=== PATIENT | male | born 1955 | race Caucasian/White ===

== ENCOUNTER 2024-07-14 10:24 | Day surgery (SDC) | payer MEDICARE, BC, SELFPAY ==
[2024-07-14] VITALS (13 sets, daily range): BP systolic 134–164; BP diastolic 68–83; BMI 32.5
[2024-07-14 11:41] LABS: Glucose - Point of Care 135 mg/dl (70-99)
[2024-07-14] MEDS: NSS 335 ML IV (12:14)
[2024-07-14] MEDS: NSS 1000 IV (14:45)
[2024-07-14 14:49] LABS: Glucose - Point of Care 117 mg/dl (70-99)
--- NOTE | 2024-07-14 14:52 | ITS.CL.PN ---
Lighting Fixture Installer - Procedure Note
Procedure
Procedure Note:
CARDIAC CATHETERIZATION REPORT
Date of Procedure: 07/15/2019
Referring: Dr. Leobardo Reyna DO
Indication: positive cardiac stress test
PROCEDURE(S)
1. left heart catheterization
2. coronary angiography
ACCESS: 6F right radial artery (closure: radial band)
CATHETERS
1. 6F JR4
2. 6F JL4
MODERATE SEDATION: 25 minutes of moderate sedation was utilized. An independent medical records receptionist was present to assist with and help manage the patient's level of consciousness and physiologic status.
HEMODYNAMIC DATA
LV 138/7 (EDP 11) mmHg
AO 128/72 (mean 98) mmHg
CORONARY ANGIOGRAPHY
Dominance: Right
LM: Large vessel with mild distal tapering
LAD: Large vessel giving rise to a single large branching diagonal. There is a long segment calcified disease in the proximal vessel as great as 80%. There is diffuse moderate disease in the diagonal and a focal severe ostial stenosis.
LCx: Large vessel giving rise to a small OM1, small OM2, small LPL1, moderate caliber LPL2, small LPL3. There is an eccentric 50% ostial stenosis and tandem 90% proximal stenosis. The small OM1 is subtotally occluded with ROBERT II flow.
RCA: Large vessel with a total occlusion in the midportion and bridging collaterals supplying antegrade flow to the RPDA There is evidence of competitive flow in the large RPDA. The distal RPDA fills via left to right collaterals from the LAD.
RADIATION: dose 525.25 mGy; DAP 31.1719 Gy*cm2; fluoroscopy time 2.9 min
CONCLUSIONS
1. Severe three-vessel coronary artery disease as described.
2. Normal LV filling pressure and no aortic stenosis
RECOMMENDATIONS
1. Consideration of coronary artery bypass grafting with SANDOVAL to LAD and additional grafts to the diagonal, LPL, and RPDA.
2. Aggressive secondary prevention of coronary artery disease
3. Continue aspirin / statin
4. Initiate low-dose beta-wan in setting of ischemia on stress test and severe coronary artery disease
Copy to: Leobardo Reyna DO (hoop punch operator helper)
Signed: Curly Hastings MD, PhD
== END 2024-07-14 17:20 | disposition home or self-care (01) ==
LOC: CATH 10:24
PROVIDERS: ATTENDING PHYSICIAN Student in an Organized Health Care Education/Training Program; CONSULT PHYSICIAN Thoracic Surgery (Cardiothoracic Vascular Surgery); FAMILY PHYSICIAN Family Medicine; OTHER PHYSICIAN Internal Medicine Cardiovascular Disease
DX: I25.10 Atherosclerotic heart disease of native coronary artery without angina pectoris (principal); Z79.82 Long term (current) use of aspirin; Z79.899 Other long term (current) drug therapy
CPT/HCPCS: 99152; 99153; 82962; 93458; C1894; Q9967

== ENCOUNTER → 2024-07-27 14:10 | Outpatient (REF) | payer MEDICARE, BC, SELFPAY | LOC: HWRAD 14:10 | PROVIDERS: ATTENDING PHYSICIAN Thoracic Surgery (Cardiothoracic Vascular Surgery); FAMILY PHYSICIAN Family Medicine | DX: Z01.810 Encounter for preprocedural cardiovascular examination (principal) | CPT/HCPCS: 71250 ==

== ENCOUNTER 2024-08-04 05:01 | Inpatient (IN) | payer MEDICARE, BC, SELFPAY ==
[2024-08-01 08:19] VITALS: BMI 32.6
[2024-08-01 09:24] LABS: % Basophils 0.8 % (0-2); % Eosinophils 1.8 % (0-6); % Immature Granulocytes 0.2 % (0-0.5); % Lymphocytes 27.8 % (20.5-51.1); % Monocytes 10.4 % (1.7-9.3); Absolute Eosinophils 0.1 10^3/uL (0-0.7); Absolute Lymphocytes 1.4 10^3/uL (1.2-3.4); Absolute Monocytes 0.5 10^3/uL (0.1-0.6); Hematocrit 42.8 % (39.0-52.0); Hemoglobin 15.5 g/dL (13.0-18.0); Mean Corp Hgb Conc. 36.2 g/dL (33.0-37.0); Mean Corpuscular Hgb 32.3 pg (27.0-31.0); Mean Corpuscular Volume 89.2 fL (80.0-94.0); Mean Platelet Volume 10.6 fL (7.4-10.4); Nucleated Red Blood Cells % 0 % (-); Platelet Count 172 10^3/uL (130-400); Red Cell Dist. Width 11.8 % (11.5-14.5); White Blood Cell Count 5.1 10^3/uL (4.8-10.8)
[2024-08-01 09:27] LABS: Urine Albumin Negative (Neg - Trace); Urine Bilirubin Negative (Negative); Urine Character Clear (Clear); Urine Color Yellow; Urine Glucose 4+ (Negative); Urine Ketone 3+ (Negative); Urine Leukocyte Negative (Negative); Urine Nitrite Negative (Negative); Urine Occult Blood Negative (Negative); Urine Urobilinogen Negative (Neg - 1+)
[2024-08-01 09:30] LABS: APTT 25.9 Sec (23.4-35.0); INR 1.02; PT 13.8 Sec (11.4-14.6)
--- NOTE | 2024-08-01 10:01 | CM ---
Chart reviewed. Met with the patient and his in PAT. Reviewed preoperative and postoperative instructions and restrictions, along with showering guidelines. Gave patient 2 soaps. Patient is agreeable to a home visit by CT Transitional RN.
Patient is independent of ADLS, lives with his in a 2 [address], 1st floor set up, 1 TEX, ambulates with a SPC but has a RW at home if needed. Plan is for the patient to return home with CT Transitional RN.
[2024-08-01 10:19] LABS: ALT (SGPT) 29 U/L (0-50); AST (SGOT) 21 U/L (17-59); Albumin 4.5 g/dl (3.5-5.0); Alkaline Phosphatase 56 U/L (38-126); Blood Urea Nitrogen 20 mg/dl (9-20); Carbon Dioxide 24 mmol/L (22-30); Chloride 103 mmol/L (98-107); Direct Bilirubin 0.2 mg/dl (0.0-0.4); Estimated Creatinine Clearance > 125 ml/min; Glucose 165 mg/dl (70-99); Potassium 4.4 mmol/L (3.5-5.1); Sodium 138 mmol/L (135-145); Total Bilirubin 0.9 mg/dl (0.2-1.3); Total Protein 6.9 g/dl (6.3-8.2); eGFR > 60.00
[2024-08-01 10:47] LABS: Glycohemoglobin (HgbA1c) 7.7 % (4.0-5.6)
[2024-08-04] VITALS (15 sets, daily range): BP systolic 74–169; BP diastolic 50–77; BMI 32.3
[2024-08-04] MEDS: BACTROBAN 2% OINTMENT 1 APPLIC NASAL ×2 (06:07→19:41)
[2024-08-04] MEDS: LOPRESSOR 25 MG PO (06:07)
[2024-08-04] MEDS: MAGNESIUM OXIDE 500 MG PO (06:07)
[2024-08-04] MEDS: PROTONIX 40 MG PO (06:08)
[2024-08-04 07:26] LABS: Urine Albumin 1+ (Neg - Trace); Urine Bilirubin Negative (Negative); Urine Character Clear (Clear); Urine Color Yellow; Urine Glucose 4+ (Negative); Urine Ketone 1+ (Negative); Urine Leukocyte Negative (Negative); Urine Nitrite Negative (Negative); Urine Occult Blood 1+ (Negative); Urine Urobilinogen Negative (Neg - 1+)
[2024-08-04 07:30] LABS: ACT+ - POC 107 Seconds (82-134)
--- NOTE | 2024-08-04 07:30 | PTCARENOTE ---
Pt admitted at 0511 to CVICU. VS, weight done. Pt clipped and prepped per CVOR protocol. CHG bath given. Med rec completed. Pre op meds given. See JUN. ABO sent. Dr. Gonzalez at bedside to see pt and . Pt placed on Modified contact precautions for
hx MRSA to toe wound in 2021. Recent nasal swab x 1 negative for MRSA. No other MRSA testing over past year. Pt reported fall in past 3 months, also uses a cane. Request for PT screen placed. Pt sent to CVOR with 2 RNs at 0630.
[2024-08-04 08:33] LABS: Urine Red Blood Cell 0-2 /HPF (0-2); Urine Squamous Cell 0-2 /LPF (Few); Urine White Cell 0-2 /HPF (0-5)
[2024-08-04 08:37] LABS: Urine Bacteria Few (Negative)
[2024-08-04 09:42] LABS: ACT+ - POC 564 Seconds (82-134)
[2024-08-04 10:07] LABS: B.E. - POC -0.8 mmol/L; Glucose - POC 297 mg/dl (70-99); HCO3 - POC 24 mmol/L (21-28); Hematocrit - POC 38 % PCV (42-52); Hemodilution- POC No; Hemoglobin Calculated - POC 12.9; Ionized Calcium - POC 1.21 mmol/L (1.15-1.33); Lactate - POC 0.94 mmol/L (0.36-0.75); O2 Saturation %Calculated-POC 99.4 % (94-98); PCO2 - POC 40 mmHg (35-48); PO2 - POC 155 mmHg (83-108); Potassium - POC 4.2 mmol/L (3.5-5.1); Sodium - POC 140 mmol/L (136-145); Specimen Type - POC Arterial; pH - POC 7.39 (7.35-7.45)
[2024-08-04 10:18] LABS: ACT+ - POC 590 Seconds (82-134)
[2024-08-04 10:45] LABS: B.E. - POC 1.5 mmol/L; Glucose - POC 232 mg/dl (70-99); HCO3 - POC 26 mmol/L (21-28); Hematocrit - POC 32 % PCV (42-52); Hemodilution- POC Yes; Ionized Calcium - POC 1.04 mmol/L (1.15-1.33); Lactate - POC 0.39 mmol/L (0.36-0.75); PCO2 - POC 40 mmHg (35-48); PO2 - POC 433 mmHg (83-108); Potassium - POC 4.6 mmol/L (3.5-5.1); Sodium - POC 139 mmol/L (136-145); Specimen Type - POC Arterial; pH - POC 7.42 (7.35-7.45)
--- NOTE | 2024-08-04 10:56 | CM ---
Chart reviewed. Patient is in the OR today. Patient is independent of ADLS, lives with his in a [facility], [facility] 1st floor set up, 1 TEX, ambulates with a SPC and has a RW at home if needed. Plan is for the patient to return
home with CT Transitional RN. CM to follow
[2024-08-04 10:58] LABS: ACT+ - POC 539 Seconds (82-134)
[2024-08-04 11:19] LABS: B.E. - POC -0.1 mmol/L; Glucose - POC 206 mg/dl (70-99); HCO3 - POC 25 mmol/L (21-28); Hematocrit - POC 31 % PCV (42-52); Hemodilution- POC Yes; Hemoglobin Calculated - POC 10.5; Ionized Calcium - POC 1.13 mmol/L (1.15-1.33); Lactate - POC 0.85 mmol/L (0.36-0.75); O2 Saturation %Calculated-POC 99.9 % (94-98); PCO2 - POC 43 mmHg (35-48); PO2 - POC 342 mmHg (83-108); Potassium - POC 3.8 mmol/L (3.5-5.1); Sodium - POC 142 mmol/L (136-145); Specimen Type - POC Arterial; pH - POC 7.38 (7.35-7.45)
[2024-08-04 11:27] LABS: ACT+ - POC 440 Seconds (82-134)
[2024-08-04 12:24] LABS: B.E. - POC 0.2 mmol/L; Glucose - POC 197 mg/dl (70-99); HCO3 - POC 25 mmol/L (21-28); Hematocrit - POC 29 % PCV (42-52); Hemodilution- POC Yes; Hemoglobin Calculated - POC 9.9; Ionized Calcium - POC 1.05 mmol/L (1.15-1.33); Lactate - POC 1.81 mmol/L (0.36-0.75); O2 Saturation %Calculated-POC 99.7 % (94-98); PCO2 - POC 37 mmHg (35-48); PO2 - POC 200 mmHg (83-108); Potassium - POC 4.2 mmol/L (3.5-5.1); Sodium - POC 142 mmol/L (136-145); Specimen Type - POC Arterial; pH - POC 7.42 (7.35-7.45)
[2024-08-04 12:28] LABS: ACT+ - POC 137 Seconds (82-134)
[2024-08-04 12:55] LABS: B.E. - POC -1.3 mmol/L; Glucose - POC 146 mg/dl (70-99); HCO3 - POC 24 mmol/L (21-28); Hematocrit - POC 29 % PCV (42-52); Hemodilution- POC Yes; Hemoglobin Calculated - POC 9.8; Lactate - POC 2.61 mmol/L (0.36-0.75); O2 Saturation %Calculated-POC 99.5 % (94-98); PCO2 - POC 42 mmHg (35-48); PO2 - POC 173 mmHg (83-108); Potassium - POC 3.7 mmol/L (3.5-5.1); Sodium - POC 144 mmol/L (136-145); Specimen Type - POC Arterial; pH - POC 7.37 (7.35-7.45)
--- NOTE | 2024-08-04 12:55 | W.CVOR.SURPR ---
CVOR Surgeon Immed Pre Op
-
I have examined this patient prior to performance of the scheduled procedure.
The patient's condition is unchanged from the time of the dictated/written History and
Physical and the patient is able to undergo the scheduled procedure.
--- NOTE | 2024-08-04 12:56 | W.IMMPOSTOP ---
Surgical Immed Post Op Note
-
CARDIAC SURGERY OPERATIVE NOTE:
Preoperative Dx:
MVCAD
Postoperative Dx:
Same
Procedures:
1) Median sternotomy
2) Takedown of JOS (narrow pedicle)
3) Endoscopic harvest/prep of RLE GSV
4) CABG x 4 (JOS to LAD, GSV to D1, GSV to OM, GSV to RPDA)
5) ELAA (40mm AtriClip)
Surgeon:
Carrillo Gonzalez M.D.
Assistants:
Alex PaulinoAJayden-Moreno; assistant manager pt throughout
Ki Mitchell-Moreno; endoscopic harvest of RLE GSV, pucdcu-sccw-dbow sternotomy closure
Anesthesia:
Dylan AquinoN.A. and Hari Graham M.D.
Perfusion:
Teresita Colbert, C.C.P.; XC: 78min, CPB: 126min
Findings:
JOS was a very healthy conduit w/ extremely brisk blood flow and ELD 3.0mm
GSV was a very healthy conduit w/ ELD 3.5
LAD was visible on the epicardial surface, scattered calcifications, ELD 3.25mm
D1 was visible on the epicardial surface, scattered calcifications, ELD 2.75mm
OM was visible on the epicardial surface, scattered calcifications, ELD 3.00mm
RPDA was visible on the epicardial surface, scattered calcifications, ELD 3.25mm
BOOKER w/ windsock morphology
Excellent flow in all grafts on transit-time U/S flow probe assessment
Normal biventricular function, trace MR, BOOKER confirmed excluded
Transfusions:
None
Complications:
None
Implants:
40mm AtriClip
Epicardial V-wire x 1
CT x 4 (B/L pleural, inferior mediastinal, superior mediastinal)
Sternal 'X' plate w/ 8 - 12mm screws
Sternal 'Square' plate w/ 4 - 10mm screws
Condition:
61 sinus (0.6/0.2); 102/57, CVP 15, 98%
GTTS: insulin 1, precedex 0.5, levophed 2
Stable/guarded to CVICU
[2024-08-04 13:32] LABS: Glucose - Point of Care 149 mg/dl (70-99)
--- NOTE | 2024-08-04 13:36 | W.PN.UPDATE ---
Update Note
Progress Note Update
Crystalloid: 3700
U.O.: 1000
UF: 1000
Blood: None
Wires: V
Inotropes: none
Pressors: levophed
Sedatives: precedex
NEURO: sedated on precedex, pupils +2mm B/L
RESP: #8OT @24cm> 14/500/40/5 Lungs clear B/L. 2 mediastinal (0cc on arrival) and R/L pleural (20cc on arrival) chest tubes to -20cm suction. Sanguineous drainage
CV: RRR +S1, S2, no S3, no rub, no murmur. Dermabond to median sternotomy. RIJ w/Slicc
ABD: round, soft, no BS
EXT: no edema, +2/4 DP pulses B/L, no femoral bruit, LE DERRELL wrap intact; left radial A-line intact
: Horowitz with clear yellow urine
A/P: POD #0 s/p CABG x 4 (JOS to LAD, GSV to D1, GSV to OM, GSV to RPDA) and ELAA (40mm AtriClip)
WERO: EF NML
- wean and extubate
- Monitor CT and urine output
- Follow up labs and CXR
- Wean levophed for maps >65/SBP goal 90-130
- Will start ASA tonight and plavix tomorrow
- EKG pending and will send to cards
- Cards consulted
# acute surgical blood loss anemia-expected
- trend CBC
# T2DM (A1C 7.7)
- insulin infusion x 48h
- resume oral agents when able
- Dm management consulted
# Hyperlipidemia
- resume statin when tolerating PO
[2024-08-04 13:48] LABS: B.E. -1.9 mmol/L; HCO3 23.7 mmol/L (21-28); Ionized Calcium 1.23 mMOL/L (1.15-1.33); O2 Saturation % 98.5 % (94-98); PCO2 43 mmHg (35-48); PO2 86 mmHg (83-108); Potassium 3.9 mMOL/L (3.5-5.1); Sodium 138 mMOL/L (136-145); pH 7.35 (7.35-7.45)
[2024-08-04] MEDS: KCL 50 IV (14:00)
[2024-08-04 14:08] LABS: Hematocrit 31.3 % (39.0-52.0); Hemoglobin 11.5 g/dL (13.0-18.0); Platelet Count 151 10^3/uL (130-400)
[2024-08-04 14:10] LABS: APTT 27.2 Sec (23.4-35.0); INR 1.37; PT 17.1 Sec (11.4-14.6)
[2024-08-04 14:12] LABS: Blood Urea Nitrogen 12 mg/dl (9-20); Estimated Creatinine Clearance > 125 ml/min; Glucose 150 mg/dl (70-99); Magnesium 2.5 mg/dl (1.6-2.3)
[2024-08-04] MEDS: LEXAPRO PO (14:28)
[2024-08-04] MEDS: NEURONTIN PO ×2 (14:28→19:41)
[2024-08-04] MEDS: CRESTOR PO (14:28)
--- NOTE | 2024-08-04 14:30 | PTCARENOTE ---
Pt received from CVOR;Sedated and intubated; Pupils round, reactive, and equal; SB rhythm on monitor; VSS; Epicardial pacemaker present; with pacer settings VVI 30/10; DP and radial pulses present; Lungs clear/diminished ETT size 8 positioned and
secured at 23 cm right/lip; Ventilator settings SIMV 16/500/5 FiO2 40%; CTx4 to -20 cm wall suction draining bloody drainage - no air leak, tidaling, or crepitus noted; Hypoactive BS; Horowitz catheter in place draining yellow clear urine; Skin Sternal
Midline Incision CDI/ R Leg wrapped in Mj wrap - CDI; No Edema present; A-line in left radial artery - line zeroed and level; [place] present in right Cordis;; PIVx1; insulin/precedex infusing; See nursing flowsheets for further details.
[2024-08-04 14:47] LABS: Glucose - Point of Care 163 mg/dl (70-99)
[2024-08-04] MEDS: NOVOLOG FLEXPEN 4 UNITS SC (14:54)
[2024-08-04] MEDS: NSS 500 IV (14:55)
--- NOTE | 2024-08-04 15:00 | W.PN.CD ---
Today's Communication / Plan
-
wean sedation likely extubation later
Impression / Plan
-
A/P: 69-year-old male with past medical history of CAD, TIA, hyperlipidemia, type 2 diabetes and chronic diastolic heart failure who is here for CABG. He is now status post CABG x4 (JOS to LAD, GSV to D1, GSV to OM, GSV to RPDA) and ELAA w/ 40 mm
AtriClip.
CAD s/p CABG
- stable cont aspirin and statin
- off inotropes
- remains intubated and sedated
HTN
- on metop
Dyslipidemia
- cont statin
DM2
- resume sglt2i when able
Subjective: intubated and sedated
Physical Exam
Vital Signs/Labs
Vital Signs
Temp Pulse Resp BP Pulse Ox
98 F 74 20 110/56 98
08/05/24 07:58 08/05/24 08:07 08/05/24 07:58 08/05/24 08:07 08/05/24 07:58
08/04/24 08/05/24 08/06/24
06:59 06:59 06:59
Actual Weight 244 lb 14.937 oz 253 lb 8.505 oz
08/05/24 03:13
08/05/24 03:13
PT 17.1 Sec (11.4-14.6) H 08/04/24 13:31
INR 1.37 08/04/24 13:31
APTT 27.2 Sec (23.4-35.0) 08/04/24 13:31
Magnesium 2.2 mg/dl (1.6-2.3) 08/05/24 03:13
Physical Exam
Constitutional: No acute distress and Comfortable
EENT: Anicteric
Cardiovascular: Rhythm & rate is regular and Pedal edema is absent
Respiratory: Other (coarse b/s)
GI: Soft
Neuro/Psych: Other (intubated)
Data Reviewed
-
Date of Service: August 05, 2024
Medical Decision Making: Reviewed Test Results
EKG: Tracing Personally Visualized and interpreted (sr)
Echo: Report Reviewed by me
Labs: Labs Reviewed by me
[2024-08-04 15:22] LABS: B.E. - POC -0.7 mmol/L; Blood Urea Nitrogen - POC 14 mg/dl (3-120); Chloride - POC 109 mmol/L (96-111); Creatinine - POC 0.59 mg/dl (0.3-1.0); Glucose - POC 187 mg/dl (70-99); HCO3 - POC 25 mmol/L (21-28); Hematocrit - POC 34 % PCV (42-52); Hemodilution- POC Yes; Hemoglobin Calculated - POC 11.4; Ionized Calcium - POC 1.26 mmol/L (1.15-1.33); Lactate - POC 2.45 mmol/L (0.36-0.75); PCO2 - POC 43 mmHg (35-48); PO2 - POC 135 mmHg (83-108); Potassium - POC 4.4 mmol/L (3.5-5.1); Sodium - POC 145 mmol/L (136-145); Specimen Type - POC Arterial; pH - POC 7.37 (7.35-7.45)
--- NOTE | 2024-08-04 15:24 | CON.INTV ---
Consultation
Consultation Request
Date/Time Consultation Requested: 08/04/2024
Date/Time Consultation Performed: 08/04/2024
Requesting Provider: Carrillo Gonzalez
Performing Provider: Steve Peters
Reason for Consultation: CABG
Medical History
-
Chief Complaint: Abnormal stress test
History of Present Illness:
Patient is a 69-year-old gentleman with known history of hypertension, hyperlipidemia as well as prior history of stroke who follows up with cardiology services outpatient closely. Patient recently had an outpatient stress test which was suggestive
of ischemia that was followed by a cardiac catheterization showing multivessel coronary artery disease. Patient was subsequently referred to cardiothoracic surgery for further evaluation. Today patient was taken to the OR for elective coronary
artery bypass grafting as well as left and left atrial appendage exclusion. Postsurgery patient was transferred to CVICU and facing grinder consult was requested for further input
Past medical history: Hypertension, hyperlipidemia, diabetes, history of CVA/TIA in the past, spinal stenosis with neuropathy
Past surgical history: Back surgery
Family history. No history of lung cancer in the family.
Social history. Patient smoked very briefly in his 20s and since has not smoked. No reported history of marijuana or vaping.
Allergies / Home Medications
Allergies
Allergy/AdvReac Type Severity Reaction Status Date / Time
Opioids - Morphine Analogues Allergy unable to Verified 08/04/24 05:59
take-
previous
medical
dependency
Opioids-Meperidine and Allergy unable to Verified 08/04/24 05:59
Related take-
previous
medical
dependency
Penicillins Allergy Hives Verified 08/04/24 05:59
Home Medications
�Medication �Instructions �Recorded �Confirmed �Last Taken �Type
benazepril 40 mg tablet 40 mg PO DAILY Blood Pressure 07/14/24 08/04/24 07/31/24 07:00 History
empagliflozin 12.5 mg-metformin 1 tab PO BID Diabetes 07/14/24 08/04/24 07/31/24 07:00 History
1,000 mg tablet (Synjardy)
escitalopram oxalate 20 mg tablet 20 mg PO DAILY Depression 07/14/24 08/04/24 08/03/24 07:00 History
nitroglycerin 0.4 mg sublingual 0.4 mg sublingual [id number] PRN 07/14/24 07/27/24 Unknown Rx
tablet chest pain #25 tabs
amino acids (Amino Acid capsule) 2 cap PO DAILY Supplement 08/04/24 08/04/24 07/21/24 07:00 History
aspirin 81 mg tablet,delayed 81 mg PO DAILY Blood Clot 08/04/24 08/04/24 08/03/24 07:00 History
release Prevention/Tx
creatine monohydrate 2 PO DAILY Supplement 08/04/24 07/21/24 07:00 History
krill oil 2 tab PO DAILY Supplement 08/04/24 08/04/24 07/21/24 07:00 History
metoprolol succinate 25 mg 25 mg PO DAILY Heart 08/04/24 08/04/24 08/03/24 07:00 History
tablet,extended release 24 hr Disease/Condition
rosuvastatin 20 mg tablet (Crestor) 20 mg PO DAILY High Cholesterol 08/04/24 08/04/24 08/03/24 07:00 History
vitamin D3-vitamin K2 1 tab PO DAILY Supplement 08/04/24 08/04/24 07/28/24 07:00 History
Review of Systems
-
Hematologic/Lymphatic: Other (All 14 systems reviewed and negative except as stated above in the history of present illness.)
Vitals / Labs / Diagnostic Testing
Vital Signs
Temp Pulse Resp BP Pulse Ox
98.1 F 54 15 78/54 97
08/04/24 15:00 08/04/24 15:00 08/04/24 15:00 08/04/24 15:00 08/04/24 15:00
Lab Data
08/04/24 13:31
Laboratory Results
08/04/24
13:31
PT 17.1 H
INR 1.37
APTT 27.2
pH 7.35
pCO2 43
pO2 86
HCO3 23.7
O2 Delivery Level
Microbiology
08/01/24 08:40 Nose MRSA Screen - Final
No Methicillin Resistant Staphylococcus aureus isolated.
Diagnostic Testing:
Physical Exam
-
HEENT: Normocephalic
Cardiovascular: S1/S2
Respiratory: Clear and Non-Labored Respirations
GI: Soft and Non Distended
Neurology: Awake and Alert
Skin: Warm
General: Comfortable
Assessment
-
Patient is a 69-year-old gentleman with recently diagnosed triple-vessel coronary artery disease, s/p coronary artery bypass grafting and left atrial appendage exclusion POD #0
Titrated off pressors per protocol, off Levophed
ECHO reviewed with normal EF
Right IJ Cordis in place
Management of chest tubes per primary service
Extubated to nasal canula. Work of breathing normal
ABG(s) 7.35, 43, 86
CXR with mild bibasilar atelectasis, otherwise unremarkable except for tubes and lines
Maintain supplement oxygen as needed
Incidental 3 mm pulmonary nodule noted on imaging. Patient smoked briefly in his 20's. No further work up needed
Spirometry 07/2024: FEV1 98% predicted, FVC 95% predicted, FEV1/FVC 78. Normal Spirometry. No known h/o COPD/Asthma.
Can add nebulizers if needed
Aspiration precautions
Encouraged incentive spirometry, OOB/ambulation/early mobility
Advance diet as tolerated following extubation
GI prophylaxis: Protonix
Monitor critical I/O's
Horowitz/chest tube output
Hb/platelets postoperatively stable
Trend CBC for now
Can transfuse if indicated for Hb <7, plt <50 in surgical patients
DVT prophylaxis including SCDs
Insulin protocol initiated and ongoing
Transition to SQ/off as indicated per team
Other medical Diagnoses:
-HTN
-HLD
-DM
-h/o CVA
-Incidental lung nodule 3mm. Out patient follow up with Pulmonary Clinic. Information added to the discharge section.
Critical Care time 61 mins -- The patient is admitted for acute critical illness for the treatment of vital organ failure and/or prevention of further life-threatening conditions. Total care includes time spent in review of history, physical exam,
medications, hemodynamic/ventilator parameters, laboratory data, imaging and discussion with house staff, pharmacy, respiratory therapy, process improvement analyst, and nursing.
Data:
WERO 07/2024: LVEF 50%, Normal RV, Interatrial septum has lipomatous hypertrophy.
Trace tricuspid regurgitation.
Aortic sclerosis without stenosis.
Mild mitral regurgitation.
Mild sessile atheroma noted in the descending aorta and distal arch.
Cardiac Cath 07/2024: 1. Severe three-vessel coronary artery disease
2. Normal LV filling pressure and no aortic stenosis
CT Chest 07/2024:
1. No acute findings within the chest.
2. Heavily calcified [place] coronary arteries. Mild to moderate aortic valve calcifications.
3. Normal caliber thoracic aorta. Moderate calcified plaque within the arch and descending thoracic aorta.
4. 3 mm nodule within the right upper lobe. If patient is at elevated risk for lung cancer, consider a follow-up CT of the chest in 12 months.
--- NOTE | 2024-08-04 15:56 | PN.DE.MGMTRT ---
Insulin Management
- -
08/04/2024: Diabetes Management Consult
Patient admitted today for scheduled CABG. PMH: multivessel CAD, HTN, HLD, T2DM.
Prior to admission was taking Synjardy 1 tablet twice a day. A1C 7.7%, Cr 0.7, eGFR>60
Patient was in the OR at the time of my visit. Patient to receive glycemic protocol insulin infusion s/p OR x48 hrs.
Will follow up on Wednesday.
Diabetes History
- -
Type of Diabetes: 2
Pre-Admission Diabetes Regimen
08/04/24
13:31
Creatinine 0.6 L
Lab Results
Hemoglobin A1c 7.7 % (4.0-5.6) H 08/01/24 08:40
Insulin Pump Settings
IP Diabetes Regimen
08/04/24 08/04/24 08/04/24
13:30 13:31 14:35
Glucose 150 H
POC Glucose 149 H 163 H
Patient Education
[2024-08-04 16:15] LABS: Glucose - Point of Care 156 mg/dl (70-99)
--- NOTE | 2024-08-04 16:46 | PTCARENOTE ---
PT placed on Cpap @ 1450; extubated to 6L nc @ 1525. PT states name and AAOx4 following all commands.
--- NOTE | 2024-08-04 17:12 | PTCARENOTE ---
pt complaining of 'feeling like I have to Pee' mcintyre taken off statlock and small amnt of blood exited urethra around mcintyre. catheter irrigated with 40ML sterile irrigation and no clots found. irrigation also exited urethra around mcintyre catheter. PA
notified
[2024-08-04 17:25] LABS: Glucose - Point of Care 128 mg/dl (70-99)
[2024-08-04 17:39] LABS: Hematocrit 30.1 % (39.0-52.0); Hemoglobin 11.2 g/dL (13.0-18.0); Platelet Count 134 10^3/uL (130-400)
--- NOTE | 2024-08-04 17:45 | PTCARENOTE ---
Horowitz draining clear yellow urine, PT no onger complaining of having to urinate. will continue to monitor
[2024-08-04] MEDS: TORADOL 15 MG IV (17:55)
[2024-08-04] MEDS: OFIRMEV 100 IV (17:58)
[2024-08-04] MEDS: NOVOLOG FLEXPEN SC (18:00)
[2024-08-04 18:05] LABS: Glucose - Point of Care 118 mg/dl (70-99)
[2024-08-04] MEDS: TYLENOL PO ×2 (18:55→23:05)
[2024-08-04] MEDS: SENOKOT-S 1 TABLET PO (19:41)
[2024-08-04] MEDS: PACERONE PO ×2 (19:41→23:16)
[2024-08-04] MEDS: LOW STRENGTH ASPIRIN 81 MG PO (19:41)
[2024-08-04] MEDS: ANCEF 5 IV (19:42)
[2024-08-04 19:49] LABS: Glucose - Point of Care 135 mg/dl (70-99)
[2024-08-04 22:11] LABS: Glucose - Point of Care 124 mg/dl (70-99)
[2024-08-04 23:06] LABS: Glucose - Point of Care 116 mg/dl (70-99)
[2024-08-04] MEDS: NEURONTIN 100 MG PO (23:09)
--- NOTE | 2024-08-04 23:30 | PTCARENOTE ---
Assumed care of pt ~2300. Pt AAOx3. SR on the tele monitor. HR 70s. Temporary epicardial v-wire intact and set to backup VVI 30/10. BP stable. B/L DP pulses weak on palpation. Pt on RA. POX 97-99%. Mediastinal CTx2 and R/L pleural CT to -20 suction,
no airleak noted, and output WNL. Deep breathing and IS encouraged. Abdomen round. Hypoactive. Horowitz catheter intact and draining yellow urine. No nausea. Tolerating sips and chips. Sternal incision Aquacel C/D/I. Right leg DERRELL wrap intact. Right
groin puncture approximated and GORDON. Right IJ cordis w/ slick intact. Left radial a-line intact. PIV x2 intact. All lines leveled, zeroed, and flushed. Glycemic Protocol followed. See worklist for full nursing assessment and interventions. Call brown
within reach.
[2024-08-05] VITALS (30 sets, daily range): BP systolic 83–144; BP diastolic 43–77; PULSE 72–75; O2SAT 100; BMI 33.5
[2024-08-05 00:08] LABS: Glucose - Point of Care 144 mg/dl (70-99)
[2024-08-05 01:06] LABS: Glucose - Point of Care 134 mg/dl (70-99)
[2024-08-05 02:11] LABS: Glucose - Point of Care 113 mg/dl (70-99)
[2024-08-05] MEDS: NOVOLIN R INSULIN INFUSION 100 IV (03:18)
[2024-08-05] MEDS: ANCEF 5 IV ×2 (03:19→11:14)
--- NOTE | 2024-08-05 03:31 | W.PN.CT ---
Today's Communication / Plan
-
Plan:
-No major issues overnight. Hemodynamically and neurologically intact
-Successfully extubated @ 1545 yesterday 08/04/24
-Weaned off Levophed gtt, remains on insulin gtt per protocol
-No swan, u/o since OR 735 mL
-Monitor chest tube output: 2meds 120/230, R/L pleurals 170/340. CXR looks clear on my review without ptx, f/u official report
-Cont. current meds (ASA, Plavix, Crestor, Amiodarone, Toprol XL)
-D/C'd SLIC and A-line this AM @ 0500
-Will d/c Horowitz this AM @ 0600
-Will maintain insulin gtt another day since pt is a diabetic, A1C 7.7, Diabetes education/management following
-Will transfer to tele phase tomorrow when off insulin gtt
-Maintain temporary V-wire, will cut before d/c home
-Maintain cordis
-Encourage use of IS
-Wean off of O2 as tolerated
-OOB into chair/Ambulate
Assessment / Plan
-
Assessment:
-S/P Median sternotomy/CABG x 4 (JOS to LAD, GSV to D1, GSV to OM, GSV to RPDA)/Endoscopic harvest/prep of RLE GSV/ELAA (40mm AtriClip), by Dr Gonzalez, 08/04/24, pod#1
-Severe 3v CAD
-LVEF 50-55%
-Chronic diastolic CHF
-HTN
-HLD
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
-Class 1 obesity (BMI 32.3)
-Hx TIA
-Former tobacco use
-DJD/Spinal stenosis
-S/p back surgery x 3
-Acute postop blood loss/Anemia (stable without blood transfusion)
-Acute postop atelectasis
-Acute postop hypovolemia with subsequent hypervolemia
Discussed patient care with: Cardiology, Nursing, Respiratory Therapy, Pharmacy and Care Team
Subjective
Procedure
S/P Median sternotomy/CABG x 4 (JOS to LAD, GSV to D1, GSV to OM, GSV to RPDA)/Endoscopic harvest/prep of RLE GSV/ELAA (40mm AtriClip), by Dr Gonzalez, 08/04/24
-
Date of Service: August 05, 2024
Pt c/o incisional pain, otherwise feels well
Objective Data
-
PT 17.1 Sec (11.4-14.6) H 08/04/24 13:31
INR 1.37 08/04/24 13:31
APTT 27.2 Sec (23.4-35.0) 08/04/24 13:31
Vital Signs
Vital Signs
Temp Pulse Resp BP Pulse Ox
99.3 F 67 17 122/66 97
08/05/24 03:00 08/05/24 03:00 08/05/24 03:00 08/05/24 03:00 08/05/24 03:00
CT Intake/Output/Weight
08/04/24 08/04/24 08/05/24
06:59 18:59 06:59
Intake Total 143.5 / 143.5
Output Total 615 / 1145 530 / 1145
Balance -615 / -1001.5 -386.5 / -1001.5
SaO2: 97 (RA)
Physical Exam
-
General: Awake, Oriented and AOx3
Cardiovascular: Regular rate & rhythm, No Murmurs, No Rub and No Gallop
Respiratory: Decreased Breath Sounds (at bases, otherwise clear)
Sternum: Stable
Incision: Clean, Dry, Intact and Dressing Intact
Extremities: Other (+trace edema)
Data Reviewed
-
Lab Results: Results Reviewed
Medications: Active Meds Reviewed
Chest X-Ray: Report Reviewed and Image Reviewed
ECG: Report Reviewed and Image Reviewed
[2024-08-05 03:54] LABS: Hematocrit 29.7 % (39.0-52.0); Hemoglobin 11.1 g/dL (13.0-18.0); Mean Corp Hgb Conc. 37.4 g/dL (33.0-37.0); Mean Corpuscular Hgb 32.7 pg (27.0-31.0); Mean Corpuscular Volume 87.6 fL (80.0-94.0); Mean Platelet Volume 10.6 fL (7.4-10.4); Platelet Count 145 10^3/uL (130-400); Red Blood Cell Count 3.39 10^6/uL (4.70-6.10); White Blood Cell Count 9.3 10^3/uL (4.8-10.8)
[2024-08-05 04:11] LABS: Blood Urea Nitrogen 17 mg/dl (9-20); Calcium 8.4 mg/dl (8.4-10.2); Carbon Dioxide 24 mmol/L (22-30); Chloride 110 mmol/L (98-107); Estimated Creatinine Clearance > 125 ml/min; Glucose 99 mg/dl (70-99); Magnesium 2.2 mg/dl (1.6-2.3); Sodium 139 mmol/L (135-145); eGFR > 60.00
[2024-08-05 04:16] LABS: Glucose - Point of Care 92 mg/dl (70-99)
[2024-08-05] MEDS: ULTRAM 50 MG PO ×2 (04:18→13:09)
[2024-08-05] MEDS: TYLENOL 1000 MG PO ×3 (05:16→21:01)
[2024-08-05] MEDS: TORADOL 15 MG IV ×3 (05:16→21:01)
--- NOTE | 2024-08-05 05:36 | PTCARENOTE ---
Pt reassessed. SR on the tele monitor. HR 60-70s. BP stable. Pt on RA. POX 98-100%. CTx4 assessment unchanged from previous. All surgical sites stable. EKG obtained and labs drawn/sent. Per KALEN arnett to laina. A-line and RODRIGO arevalo'joseluis. Glycemic
protocol followed. See MAR for pain medication administration. Call brown within reach.
[2024-08-05 06:26] LABS: Glucose - Point of Care 139 mg/dl (70-99)
--- NOTE | 2024-08-05 07:50 | PTCARENOTE ---
Received pt from shift production associate RN; pt AAAOx3 and resting comfortably in chair; NSR on monitor and VSS; Epicardial V wire set to VVI 30/10 and no pacing noted; RIJ Cordis and PIV x1 patent; Insulin infusing per Glycemic protocol see flow sheet for
details; Lungs diminished; IS to 1500; CT x4 to -20 wall suction no air leak and no crepitus noted; hypoactive bowel sounds; pt DTV since Horowitz catheter removal; palpable radial pulses and weak lower extremity pulses; no edema noted; all surgical
sites C/D/I; see nursing documentation for further details.
[2024-08-05 07:57] LABS: Glucose - Point of Care 123 mg/dl (70-99)
[2024-08-05] MEDS: CRESTOR 20 MG PO (08:07)
[2024-08-05] MEDS: BACTROBAN 2% OINTMENT 1 APPLIC NASAL ×2 (08:07→20:36)
[2024-08-05] MEDS: LOPRESSOR 12.5 MG PO ×2 (08:07→20:36)
[2024-08-05] MEDS: MAGNESIUM OXIDE 500 MG PO ×2 (08:08→20:36)
[2024-08-05] MEDS: PLAVIX 75 MG PO (08:08)
[2024-08-05] MEDS: LIDOCAINE 4% PATCH TOPICAL (08:08)
[2024-08-05] MEDS: SENOKOT-S 1 TABLET PO ×2 (08:08→20:36)
[2024-08-05] MEDS: NEURONTIN 100 MG PO ×3 (08:08→21:05)
[2024-08-05] MEDS: PROTONIX 40 MG PO (08:08)
[2024-08-05] MEDS: PACERONE 200 MG PO ×3 (08:08→21:01)
[2024-08-05] MEDS: LOW STRENGTH ASPIRIN 81 MG PO (08:08)
[2024-08-05] MEDS: LEXAPRO 20 MG PO (08:08)
[2024-08-05] MEDS: NOVOLOG FLEXPEN 4 UNITS SC ×3 (08:09→17:19)
--- NOTE | 2024-08-05 09:15 | W.PN.INTV ---
Today's Communication / Plan
Recommendations
- Continue incentive spirometry
- Nightly CPAP
- Outpatient follow-up with pulmonary medicine for incidental lung nodule, follow-up information in the discharge section
- Once patient transferred out of CVICU, rigger supervisor service will sign off.
Assessment
-
Patient is a 69-year-old gentleman with known history of hypertension, hyperlipidemia as well as prior history of stroke who follows up with cardiology services outpatient closely. Patient recently had an outpatient stress test which was suggestive
of ischemia that was followed by a cardiac catheterization showing multivessel coronary artery disease. Patient was subsequently referred to cardiothoracic surgery for further evaluation. Today patient was taken to the OR for elective coronary
artery bypass grafting as well as left and left atrial appendage exclusion. Postsurgery patient was transferred to CVICU and rigger supervisor consult was requested for further input
Patient is a 69-year-old gentleman with recently diagnosed triple-vessel coronary artery disease, s/p coronary artery bypass grafting and left atrial appendage exclusion POD #1
Titrated off pressors per protocol, off Levophed
ECHO reviewed with normal EF
Right IJ Cordis in place
Management of chest tubes per primary service
Extubated to nasal canula. Work of breathing normal
ABG(s) 7.35, 43, 86
CXR with mild bibasilar atelectasis, otherwise unremarkable except for tubes and lines
Maintain supplement oxygen as needed
Incidental 3 mm pulmonary nodule noted on imaging. Patient smoked briefly in his 20's. No further work up needed
Spirometry 07/2024: FEV1 98% predicted, FVC 95% predicted, FEV1/FVC 78. Normal Spirometry. No known h/o COPD/Asthma.
Can add nebulizers if needed
Aspiration precautions
Encouraged incentive spirometry, OOB/ambulation/early mobility
Advance diet as tolerated following extubation
GI prophylaxis: Protonix
Monitor critical I/O's
Horowitz/chest tube output
Hb/platelets postoperatively stable
Trend CBC for now
Can transfuse if indicated for Hb <7, plt <50 in surgical patients
DVT prophylaxis including SCDs
Off insulin infusion now.
Other medical Diagnoses:
-HTN
-HLD
-DM
-h/o CVA
-Incidental lung nodule 3mm. Out patient follow up with Pulmonary Clinic. Information added to the discharge section
-h/o MANJEET. on nightly CPAP
Critical Care time 45 mins -- The patient is admitted for acute critical illness for the treatment of vital organ failure and/or prevention of further life-threatening conditions. Total care includes time spent in review of history, physical exam,
medications, hemodynamic/ventilator parameters, laboratory data, imaging and discussion with house staff, pharmacy, respiratory therapy, system administration advisor, and nursing.
Data:
WERO 07/2024: LVEF 50%, Normal RV, Interatrial septum has lipomatous hypertrophy.
Trace tricuspid regurgitation.
Aortic sclerosis without stenosis.
Mild mitral regurgitation.
Mild sessile atheroma noted in the descending aorta and distal arch.
Cardiac Cath 07/2024: 1. Severe three-vessel coronary artery disease
2. Normal LV filling pressure and no aortic stenosis
CT Chest 07/2024:
1. No acute findings within the chest.
2. Heavily calcified [place] coronary arteries. Mild to moderate aortic valve calcifications.
3. Normal caliber thoracic aorta. Moderate calcified plaque within the arch and descending thoracic aorta.
4. 3 mm nodule within the right upper lobe. If patient is at elevated risk for lung cancer, consider a follow-up CT of the chest in 12 months.
Subjective Dataa
Subjective Data
Date of Service:
Date of Service: August 05, 2024
Subjective:
Patient comfortably sitting in chair, in no acute distress.
Review of Systems
Genitourinary: Other (All 14 systems reviewed and negative except as stated above in the history of present illness.)
Objective Data
Data Reviewed
Vital Signs / I&O / Oxygen:
Vital Signs
Temp Pulse Resp BP Pulse Ox
98 F 74 20 110/56 98
08/05/24 07:58 08/05/24 08:07 08/05/24 07:58 08/05/24 08:07 08/05/24 07:58
Intake and Output
08/04/24 08/05/24 08/06/24
06:59 06:59 06:59
Intake Total 208.4 / 208.4 24.5 / 24.5
Output Total 1505 / 1505
Balance -1296.6 / -1296.6 -0.5 / -0.5
SaO2 [SIMV] 94
SaO2 98
Nasal Cannula flow liters per 3
minute
Physical Exam
General: Comfortable
HEENT: Normocephalic and Anicteric
Cardiovascular: S1-S2, Regular Rhythm and Peripheral Edema (1+, bilateral pedal edema)
Respiratory: Clear and Non-Labored Respirations
GI: Soft and Non Distended
Neurology: Awake and Alert
Labs/Micro/Reports
Lab Data
08/05/24 03:13
08/05/24 03:13
Laboratory Results
08/04/24
13:31
PT 17.1 H
INR 1.37
APTT 27.2
pH 7.35
pCO2 43
pO2 86
HCO3 23.7
O2 Delivery Level
Microbiology
08/01/24 08:40 Nose MRSA Screen - Final
No Methicillin Resistant Staphylococcus aureus isolated.
--- NOTE | 2024-08-05 09:51 | W.PN.CD ---
Today's Communication / Plan
-
Cont routine post-op care
ISB OOB as able
Impression / Plan
-
A/P: 69-year-old male with past medical history of CAD, TIA, hyperlipidemia, type 2 diabetes and chronic diastolic heart failure who is here for CABG. He is now status post CABG x4 (JOS to LAD, GSV to D1, GSV to OM, GSV to RPDA) and ELAA w/ 40 mm
AtriClip.
CAD s/p CABG
- stable cont aspirin and statin
- off inotropes
- extubated off inotropes
HTN
- on metop
Dyslipidemia
- cont statin
DM2
- resume sglt2i when able
Subjective: feels well
Physical Exam
Vital Signs/Labs
Vital Signs
Temp Pulse Resp BP Pulse Ox
98 F 74 20 110/56 98
08/05/24 07:58 08/05/24 08:07 08/05/24 07:58 08/05/24 08:07 08/05/24 07:58
08/04/24 08/05/24 08/06/24
06:59 06:59 06:59
Actual Weight 244 lb 14.937 oz 253 lb 8.505 oz
08/05/24 03:13
08/05/24 03:13
PT 17.1 Sec (11.4-14.6) H 08/04/24 13:31
INR 1.37 08/04/24 13:31
APTT 27.2 Sec (23.4-35.0) 08/04/24 13:31
Magnesium 2.2 mg/dl (1.6-2.3) 08/05/24 03:13
Physical Exam
Constitutional: No acute distress and Comfortable
EENT: Anicteric
Cardiovascular: Rhythm & rate is regular
Respiratory: Respiratory effort normal and Lungs clear to auscul.
GI: Soft
Data Reviewed
-
Date of Service: August 05, 2024
Medical Decision Making: Reviewed Test Results
EKG: Tracing Personally Visualized and interpreted (sr)
Labs: Labs Reviewed by me
[2024-08-05 09:58] LABS: Glucose - Point of Care 147 mg/dl (70-99)
[2024-08-05] MEDS: LASIX 40 MG IV (11:14)
[2024-08-05] MEDS: KCL 20 MEQ PO (11:14)
[2024-08-05 12:06] LABS: Glucose - Point of Care 84 mg/dl (70-99)
--- NOTE | 2024-08-05 12:16 | W.PN.ANS.POP ---
Anesthesia Post Operative
- Anesthesia Post Op Note
Vital Signs Stable-See Nursing Note: Yes
Airway Patent: Yes
Adequate Pain Control: Yes
Change in Mental Status: No
Current Postoperative Nausea & Vomiting: No
Anesthesia Complications: No
General Anesthetic Recall: No
Unplanned Admission: No
Post Op Hydration Adequate: Yes
[2024-08-05] MEDS: NSS IV (13:08)
--- NOTE | 2024-08-05 13:56 | PTCARENOTE ---
NSR on monitor and VSS; family at bedside and pt resting comfortable in chair.
[2024-08-05 14:21] LABS: Glucose - Point of Care 342 mg/dl (70-99)
[2024-08-05 15:09] LABS: Glucose - Point of Care 270 mg/dl (70-99)
[2024-08-05 15:58] LABS: Glucose - Point of Care 241 mg/dl (70-99)
--- NOTE | 2024-08-05 17:18 | PTCARENOTE ---
NSR on monitor and VSS; assessment unchanged and pt resting comfortably in chair.
[2024-08-05 19:15] LABS: Glucose - Point of Care 163 mg/dl (70-99)
[2024-08-05 19:15] LABS: Glucose - Point of Care 100 mg/dl (70-99)
[2024-08-05] MEDS: CORDARONE 103 MG IV ×2 (20:55→22:53)
--- NOTE | 2024-08-05 21:00 | PTCARENOTE ---
Assumed care of pt from dayshift RN. Walking rounds completed. Pt is AAOx3. Upon start of shift pt SR on the tele monitor. Temporary epicardial v-wire intact and set to backup VVI 30. ~2034 pt went into a-fib w/ HR 100-140s. CTPA notified. Amio
bolus ordered and administered. Pt educated on a-fib. B/L DP pulses weak on palpation. B/L radial pulses palpable. Generalized anasarca. Pt on RA. POX 96-100%. R/L pleural CT and Mediastinal CTx2 to -20 suction, no airleak noted, and output WNL.
Deep breathing and IS encouraged. Abdomen round/nontender. +BS. Pt due to void for current shift. All surgical sites stable. Right IJ cordis and PIV intact. Glycemic protocol followed. Pt assisted out of the chair and into bed w/ assist x2 and
rolling walker. See worklist for full nursing assessment and interventions. Call brown within reach.
[2024-08-05 21:02] LABS: Glucose - Point of Care 151 mg/dl (70-99)
[2024-08-05] MEDS: CALCIUM GLUCONATE 100 IV (22:53)
[2024-08-05 23:02] LABS: Glucose - Point of Care 119 mg/dl (70-99)
[2024-08-06] VITALS (24 sets, daily range): BP systolic 86–136; BP diastolic 49–91; PULSE 66; O2SAT 99; BMI 33.9
--- NOTE | 2024-08-06 00:10 | PTCARENOTE ---
Pt reassessed. Pt remains in a-fib on the tele monitor. HR 90-110s. BP soft. 2g calcium gluconate given as ordered - see MAR. Pt is 93-96% on RA. CTx4 assessment unchanged from previous. Additional Amio bolus administered - see MAR. All surgical
sites stable. Pt resting in bed at this time. Glycemic protocol followed. Call brown within reach.
[2024-08-06] MEDS: NOVOLIN R INSULIN INFUSION 100 IV (00:17)
[2024-08-06 01:07] LABS: Glucose - Point of Care 102 mg/dl (70-99)
[2024-08-06] MEDS: CORDARONE 518 MG IV (01:08)
[2024-08-06 03:06] LABS: Glucose - Point of Care 142 mg/dl (70-99)
--- NOTE | 2024-08-06 03:27 | PTCARENOTE ---
Pt reassessed. Pt broke out of a-fib ~0225 into SR. PA aware. Amio infusion maintained. HR 70s. BP stable. Pt is 98% on RA. CTx4 assessment unchanged from original. Pt assisted OOB to void then repositioned back into bed. All surgical sites stable.
Labs drawn and sent. Glycemic protocol followed. Call brown within reach.
[2024-08-06 03:36] LABS: Hematocrit 28.1 % (39.0-52.0); Hemoglobin 10.1 g/dL (13.0-18.0); Mean Corp Hgb Conc. 35.9 g/dL (33.0-37.0); Mean Corpuscular Hgb 32.4 pg (27.0-31.0); Mean Corpuscular Volume 90.1 fL (80.0-94.0); Mean Platelet Volume 10.2 fL (7.4-10.4); Platelet Count 121 10^3/uL (130-400); Red Blood Cell Count 3.12 10^6/uL (4.70-6.10); Red Cell Dist. Width 12.2 % (11.5-14.5); White Blood Cell Count 7.2 10^3/uL (4.8-10.8)
[2024-08-06 03:37] LABS: Blood Urea Nitrogen 25 mg/dl (9-20); Calcium 8.6 mg/dl (8.4-10.2); Carbon Dioxide 26 mmol/L (22-30); Chloride 104 mmol/L (98-107); Estimated Creatinine Clearance 76 ml/min; Glucose 126 mg/dl (70-99); Magnesium 2.2 mg/dl (1.6-2.3); Potassium 3.5 mmol/L (3.5-5.1); Sodium 137 mmol/L (135-145); eGFR > 60.00
[2024-08-06 05:09] LABS: Glucose - Point of Care 121 mg/dl (70-99)
[2024-08-06] MEDS: TYLENOL 1000 MG PO ×3 (05:19→22:17)
[2024-08-06] MEDS: KCL 40 MEQ PO (05:19)
[2024-08-06] MEDS: CALCIUM GLUCONATE 100 IV (05:19)
--- NOTE | 2024-08-06 06:03 | W.PN.CT ---
Today's Communication / Plan
-
Plan:
-No major issues overnight. Hemodynamically and neurologically intact
-Pt unfortunately went into a-fib with RVR 120's x ~6hrs last night into this early this morning
-Converted without conversion pause after Amiodarone bolus x 2 and drip. Remains on Amiodarone gtt per protocol
-On insulin gtt per protocol, will transition off today and transfer to [facility]
-Consider d/c of chest tubes: 2meds 35/130, R/L pleurals 55/210. CXR looks clear on my review without ptx, f/u official report
-Cont. current meds (ASA, Plavix, Crestor, Amiodarone, Toprol XL)
-A1C 7.7, Diabetes education/management following
-Will replete K, 3.5
-Maintain temporary V-wire, will cut before d/c home
-Maintain cordis another day
-Encourage use of IS
-OOB into chair/Ambulate/ PT-OT f/u
Assessment / Plan
-
Assessment:
-S/P Median sternotomy/CABG x 4 (JOS to LAD, GSV to D1, GSV to OM, GSV to RPDA)/Endoscopic harvest/prep of RLE GSV/ELAA (40mm AtriClip), by Dr Gonzalez, 08/04/24, pod#2
-Severe 3v CAD
-LVEF 50-55%
-Chronic diastolic CHF
-HTN
-HLD
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
-Class 1 obesity (BMI 32.3)
-Hx TIA
-Former tobacco use
-DJD/Spinal stenosis
-S/p back surgery x 3
-Acute postop blood loss/Anemia (stable without blood transfusion)
-Acute postop atelectasis
-Acute postop hypovolemia with subsequent hypervolemia
-Acute postop a-fib with RVR
Discussed patient care with: Cardiology, Nursing, Respiratory Therapy, Pharmacy and Care Team
Subjective
Procedure
S/P Median sternotomy/CABG x 4 (JOS to LAD, GSV to D1, GSV to OM, GSV to RPDA)/Endoscopic harvest/prep of RLE GSV/ELAA (40mm AtriClip), by Dr Gonzalez, 08/04/24
-
Date of Service: August 06, 2024
Pt c/o mild incisional pain, otherwise feels well
Objective Data
-
Lab Results
08/06/24 03:11
08/06/24 03:11
PT 17.1 Sec (11.4-14.6) H 08/04/24 13:31
INR 1.37 08/04/24 13:31
APTT 27.2 Sec (23.4-35.0) 08/04/24 13:31
Vital Signs
Vital Signs
Temp Pulse Resp BP Pulse Ox
98.5 F 77 18 109/60 96
08/06/24 00:00 08/06/24 05:00 08/06/24 05:00 08/06/24 05:00 08/06/24 05:00
CT Intake/Output/Weight
08/05/24 08/05/24 08/06/24
06:59 18:59 06:59
Intake Total 208.4 / 208.4 182.1 / 465.5 283.4 / 465.5
Output Total 890 / 1505 975 / 1365 390 / 1365
Balance -681.6 / -1296.6 -792.9 / -899.5 -106.6 / -899.5
SaO2: 96 (RA)
Physical Exam
-
General: Awake, Oriented and AOx3
Cardiovascular: Regular rate & rhythm, No Murmurs, No Rub and No Gallop
Respiratory: Decreased Breath Sounds (at bases, otherwise clear)
Sternum: Stable
Incision: Clean, Dry, Intact and Dressing Intact
Extremities: Other (+trace edema)
Data Reviewed
-
Lab Results: Results Reviewed
Medications: Active Meds Reviewed
Chest X-Ray: Report Reviewed and Image Reviewed
ECG: Report Reviewed and Image Reviewed
[2024-08-06 07:04] LABS: Glucose - Point of Care 118 mg/dl (70-99)
--- NOTE | 2024-08-06 09:00 | PTCARENOTE ---
PT AAOx4 w/ complaints of pain, NSR on monitor VSS, RA 99% O2 on monitor, GI passing gas, WNL, all surgical sights CDI, CTx4 draining sero sang minimal drainage. see worklist for detailed assessment
--- NOTE | 2024-08-06 09:24 | W.PN.INTV ---
Today's Communication / Plan
Recommendations
- Continue incentive spirometry
- Outpatient follow-up with pulmonary medicine for incidental lung nodule, follow-up information in the discharge section
- Once patient transferred out of CVICU, rehab department manager service will sign off.
Assessment
-
Patient is a 69-year-old gentleman with known history of hypertension, hyperlipidemia as well as prior history of stroke who follows up with cardiology services outpatient closely. Patient recently had an outpatient stress test which was suggestive
of ischemia that was followed by a cardiac catheterization showing multivessel coronary artery disease. Patient was subsequently referred to cardiothoracic surgery for further evaluation. Today patient was taken to the OR for elective coronary
artery bypass grafting as well as left and left atrial appendage exclusion. Postsurgery patient was transferred to CVICU and rehab department manager consult was requested for further input
Patient is a 69-year-old gentleman with recently diagnosed triple-vessel coronary artery disease, s/p coronary artery bypass grafting and left atrial appendage exclusion POD #2
Titrated off pressors per protocol, off Levophed
ECHO reviewed with normal EF
Right IJ Cordis in place
Management of chest tubes per primary service, anticipate removal today
Extubated to nasal canula. Work of breathing normal
CXR unremarkable today
Maintain supplement oxygen as needed
Incidental 3 mm pulmonary nodule noted on imaging. Patient smoked briefly in his 20's. No further work up needed
Spirometry 07/2024: FEV1 98% predicted, FVC 95% predicted, FEV1/FVC 78. Normal Spirometry. No known h/o COPD/Asthma.
Can add nebulizers if needed
Aspiration precautions
Encouraged incentive spirometry, OOB/ambulation/early mobility
Advance diet as tolerated following extubation
GI prophylaxis: Protonix
Monitor critical I/O's
Horowitz/chest tube output
Hb/platelets postoperatively stable
Trend CBC for now
Can transfuse if indicated for Hb <7, plt <50 in surgical patients
DVT prophylaxis including SCDs
Continues to be on insulin infusion
Patient developed atrial fibrillation with RVR overnight, continues to be on amiodarone infusion
Other medical Diagnoses:
-HTN
-HLD
-DM
-h/o CVA
-Incidental lung nodule 3mm. Out patient follow up with Pulmonary Clinic. Information added to the discharge section
Critical Care time 48 mins -- The patient is admitted for acute critical illness for the treatment of vital organ failure and/or prevention of further life-threatening conditions. Total care includes time spent in review of history, physical exam,
medications, hemodynamic/ventilator parameters, laboratory data, imaging and discussion with house staff, pharmacy, respiratory therapy, cableman, and nursing.
Data:
WERO 07/2024: LVEF 50%, Normal RV, Interatrial septum has lipomatous hypertrophy.
Trace tricuspid regurgitation.
Aortic sclerosis without stenosis.
Mild mitral regurgitation.
Mild sessile atheroma noted in the descending aorta and distal arch.
Cardiac Cath 07/2024: 1. Severe three-vessel coronary artery disease
2. Normal LV filling pressure and no aortic stenosis
CT Chest 07/2024:
1. No acute findings within the chest.
2. Heavily calcified [place] coronary arteries. Mild to moderate aortic valve calcifications.
3. Normal caliber thoracic aorta. Moderate calcified plaque within the arch and descending thoracic aorta.
4. 3 mm nodule within the right upper lobe. If patient is at elevated risk for lung cancer, consider a follow-up CT of the chest in 12 months.
Subjective Dataa
Subjective Data
Date of Service:
Date of Service: August 06, 2024
Subjective:
Patient comfortably sitting in bed, no acute distress. Had episode of diaphoresis and tachycardia and A-fib with RVR overnight.
Review of Systems
Genitourinary: Other (All 14 systems reviewed and negative except as stated above in the history of present illness.)
Objective Data
Data Reviewed
Vital Signs / I&O / Oxygen:
Vital Signs
Temp Pulse Resp BP Pulse Ox
98.5 F 67 18 92/56 97
08/06/24 00:00 08/06/24 07:10 08/06/24 07:00 08/06/24 07:00 08/06/24 07:00
Intake and Output
08/05/24 08/06/24 08/07/24
06:59 06:59 06:59
Intake Total 208.4 / 208.4 512.3 / 559.1 46.8 / 46.8
Output Total 1505 / 1505 1435 / 1435
Balance -1296.6 / -1296.6 -922.7 / -875.9 46.8 / 46.8
SaO2 [SIMV] 94
SaO2 97
Nasal Cannula flow liters per 3
minute
Physical Exam
General: Comfortable
HEENT: Normocephalic and Anicteric
Cardiovascular: S1-S2 and Regular Rhythm
Respiratory: Clear and Non-Labored Respirations
GI: Soft and Non Distended
Neurology: Awake and Alert
Labs/Micro/Reports
Lab Data
08/06/24 03:11
08/06/24 03:11
[2024-08-06] MEDS: PACERONE 200 MG PO ×3 (10:17→22:18)
[2024-08-06] MEDS: LEXAPRO 20 MG PO (10:17)
[2024-08-06] MEDS: PLAVIX 75 MG PO (10:17)
[2024-08-06] MEDS: LOPRESSOR 12.5 MG PO ×2 (10:17→20:07)
[2024-08-06] MEDS: LOW STRENGTH ASPIRIN 81 MG PO (10:18)
[2024-08-06] MEDS: CRESTOR 20 MG PO (10:18)
[2024-08-06] MEDS: MAGNESIUM OXIDE 500 MG PO ×2 (10:18→20:07)
[2024-08-06] MEDS: LIDOCAINE 4% PATCH 1 PATCH TOPICAL (10:19)
[2024-08-06] MEDS: PROTONIX 40 MG PO (10:20)
[2024-08-06] MEDS: BACTROBAN 2% OINTMENT 1 APPLIC NASAL ×2 (10:20→20:07)
[2024-08-06] MEDS: NEURONTIN 100 MG PO ×3 (10:20→22:18)
[2024-08-06] MEDS: SENOKOT-S 1 TABLET PO ×2 (10:20→20:07)
[2024-08-06] MEDS: NOVOLOG FLEXPEN 4 UNITS SC (10:23)
[2024-08-06 10:28] LABS: Glucose - Point of Care 165 mg/dl (70-99)
[2024-08-06] MEDS: TORADOL 15 MG IV ×2 (10:57→17:45)
--- NOTE | 2024-08-06 12:00 | PTCARENOTE ---
CTx4 removed, VSS AAOx4 complaining ofpain. pain medication given. no other change from previous assessment. see worklist for detailed assessment
--- NOTE | 2024-08-06 12:04 | W.PN.CD ---
Today's Communication / Plan
-
AF overnight -> monitor tele
OOB Ambulate as able
Impression / Plan
-
A/P: 69-year-old male with past medical history of CAD, TIA, hyperlipidemia, type 2 diabetes and chronic diastolic heart failure who is here for CABG. He is now status post CABG x4 (JOS to LAD, GSV to D1, GSV to OM, GSV to RPDA) and ELAA w/ 40 mm
AtriClip.
CAD s/p CABG
- stable cont aspirin and statin
- off inotropes
- extubated off inotropes
AF overnight
- spontaneously resolved amio increased
HTN
- on metop
Dyslipidemia
- cont statin
DM2
- resume sglt2i when able
Subjective: feels well no new complaints
Physical Exam
Vital Signs/Labs
Vital Signs
Temp Pulse Resp BP Pulse Ox
98.5 F 67 18 92/56 97
08/06/24 00:00 08/06/24 07:10 08/06/24 07:00 08/06/24 07:00 08/06/24 07:00
08/05/24 08/06/24 08/07/24
06:59 06:59 06:59
Actual Weight 253 lb 8.505 oz 256 lb 9.889 oz
08/06/24 03:11
08/06/24 03:11
PT 17.1 Sec (11.4-14.6) H 08/04/24 13:31
INR 1.37 08/04/24 13:31
APTT 27.2 Sec (23.4-35.0) 08/04/24 13:31
Magnesium 2.2 mg/dl (1.6-2.3) 08/06/24 03:11
Physical Exam
Constitutional: No acute distress
EENT: Anicteric
Cardiovascular: Rhythm & rate is regular and Pedal edema is absent
Respiratory: Respiratory effort normal and Lungs clear to auscul.
GI: Soft
Neuro/Psych: AO x 3
Data Reviewed
-
Date of Service: August 06, 2024
Medical Decision Making: Reviewed Test Results
EKG: Tracing Personally Visualized and interpreted (sr)
Labs: Labs Reviewed by me
[2024-08-06 13:40] LABS: Glucose - Point of Care 234 mg/dl (70-99)
[2024-08-06] MEDS: NSS 500 IV (13:46)
[2024-08-06] MEDS: NOVOLOG FLEXPEN SC (13:57)
--- NOTE | 2024-08-06 16:30 | PTCARENOTE ---
change from previous assessment. see worklist for detailed assessment
[2024-08-06 17:38] LABS: Glucose - Point of Care 257 mg/dl (70-99)
[2024-08-06] MEDS: NON-FORMULARY ITEM 1 TABLET PO (17:38)
[2024-08-06] MEDS: NOVOLOG FLEXPEN-MODERATE RESISTANCE 5 UNITS SC (17:38)
--- NOTE | 2024-08-06 20:00 | PTCARENOTE ---
Received pt from [facility]. pt is POD #2 from CABGx4 and BOOKER clip with Dr Gonzalez. Pt is resting comfortably in bed. pt AAOx4. NSR on monitor after converting from Afib earlier in the day. VSS. heart sounds audible but distant, radial and DP pulses
palpable, trace generalized edema noted, temp epicardial V-wires set to VVI 30/10/0.8. lungs diminished at b/l bases, spo2 95% on RA. +BS x4 quadrants, abdomen soft non tender. pt voiding clear yellow urine, pt experiencing urgency and multiple
accidents. surgical sites maintained. right IJ cordis and PIV maintained. amiodarone gtt infusing. call brown within reach. will continue to monitor.
[2024-08-06 22:23] LABS: Glucose - Point of Care 231 mg/dl (70-99)
[2024-08-07] VITALS (10 sets, daily range): BP systolic 93–136; BP diastolic 52–78; PULSE 74–83; BMI 33.6
--- NOTE | 2024-08-07 | PTCARENOTE ---
Pt assessment unchanged. NSR on monitor. VSS. call brown within reach. will continue to monitor.
--- NOTE | 2024-08-07 04:00 | PTCARENOTE ---
Pt assessment unchanged. NSR on monitor. VSS. pt assisted to chair for more comfortably position. labs drawn and sent. call brown within reach.
--- NOTE | 2024-08-07 04:26 | W.PN.CT ---
Today's Communication / Plan
-
Plan:
-No major issues overnight. Hemodynamically and neurologically intact
-NO further a-fib since the 6hrs on POD#1 into POD#2. BB increased, on PO Amiodarone
-D/C cordis
-Cont. current meds (ASA, Plavix, Crestor, Amiodarone, Toprol XL)
-A1C 7.7, Diabetes education/management following
-Will replete K, 3.5
-Maintain temporary V-wire, will cut before d/c home
-Encourage use of IS
-Ambulatory dysfunction d/t neuropathy, uses cane/walker
-OOB into chair/Ambulate/ PT-OT f/u
-Home vs acute rehab tomorrow (wants to go home)
Assessment / Plan
-
Assessment:
-S/P Median sternotomy/CABG x 4 (JOS to LAD, GSV to D1, GSV to OM, GSV to RPDA)/Endoscopic harvest/prep of RLE GSV/ELAA (40mm AtriClip), by Dr Gonzalez, 08/04/24, pod#3
-Severe 3v CAD
-LVEF 50-55%
-Chronic diastolic CHF
-HTN
-HLD
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
-Ambulatory dysfunction, uses cane/walker
-Class 1 obesity (BMI 32.3)
-Hx TIA
-Former tobacco use
-DJD/Spinal stenosis
-S/p back surgery x 3
-Acute postop blood loss/Anemia (stable without blood transfusion)
-Acute postop atelectasis
-Acute postop hypovolemia with subsequent hypervolemia
-Acute postop a-fib with RVR
Discussed patient care with: Cardiology, Nursing, Respiratory Therapy, Pharmacy and Care Team
Subjective
Procedure
S/P Median sternotomy/CABG x 4 (JOS to LAD, GSV to D1, GSV to OM, GSV to RPDA)/Endoscopic harvest/prep of RLE GSV/ELAA (40mm AtriClip), by Dr Gonzalez, 08/04/24
-
Date of Service: August 07, 2024
Pt c/o mild incisional pain, otherwise feels well. Ambulating with rolling walker
Objective Data
-
PT 17.1 Sec (11.4-14.6) H 08/04/24 13:31
INR 1.37 08/04/24 13:31
APTT 27.2 Sec (23.4-35.0) 08/04/24 13:31
Vital Signs
Vital Signs
Temp Pulse Resp BP Pulse Ox
98.5 F 68 16 105/52 97
08/07/24 04:00 08/07/24 01:00 08/07/24 04:00 08/07/24 00:00 08/07/24 04:00
CT Intake/Output/Weight
08/06/24 08/06/24 08/07/24
06:59 18:59 06:59
Intake Total 330.2 / 559.1 1012.8 / 1012.8
Output Total 460 / 1435 1140 / 2915 1775 / 2915
Balance -129.8 / -875.9 -127.2 / -1902.2 -1775 / -1902.2
SaO2: 97 (RA)
Physical Exam
-
General: Awake, Oriented and AOx3
Cardiovascular: Regular rate & rhythm, No Murmurs, No Rub and No Gallop
Respiratory: Decreased Breath Sounds (at bases, otherwise clear)
Sternum: Stable
Incision: Clean, Dry, Intact and Dressing Intact
Extremities: Other (+trace edema)
Data Reviewed
-
Lab Results: Results Reviewed
Medications: Active Meds Reviewed
Chest X-Ray: Report Reviewed and Image Reviewed
ECG: Report Reviewed and Image Reviewed
[2024-08-07 04:32] LABS: Hematocrit 27.3 % (39.0-52.0); Hemoglobin 9.8 g/dL (13.0-18.0); Mean Corp Hgb Conc. 35.9 g/dL (33.0-37.0); Mean Corpuscular Hgb 32.3 pg (27.0-31.0); Mean Corpuscular Volume 90.1 fL (80.0-94.0); Mean Platelet Volume 10.2 fL (7.4-10.4); Platelet Count 113 10^3/uL (130-400); Red Blood Cell Count 3.03 10^6/uL (4.70-6.10); Red Cell Dist. Width 12.1 % (11.5-14.5); White Blood Cell Count 6.2 10^3/uL (4.8-10.8)
[2024-08-07 04:58] LABS: Blood Urea Nitrogen 22 mg/dl (9-20); Calcium 8.7 mg/dl (8.4-10.2); Carbon Dioxide 26 mmol/L (22-30); Chloride 106 mmol/L (98-107); Estimated Creatinine Clearance 92 ml/min; Glucose 191 mg/dl (70-99); Magnesium 2.2 mg/dl (1.6-2.3); Potassium 4.3 mmol/L (3.5-5.1); Sodium 137 mmol/L (135-145); eGFR > 60.00
[2024-08-07] MEDS: TYLENOL 1000 MG PO ×3 (05:50→22:35)
[2024-08-07] MEDS: TORADOL 15 MG IV ×2 (05:50→12:28)
[2024-08-07] MEDS: NOVOLOG FLEXPEN-MODERATE RESISTANCE 1 UNITS SC ×3 (07:25→16:20)
[2024-08-07] MEDS: NON-FORMULARY ITEM 1 TABLET PO ×2 (07:49→16:17)
[2024-08-07] MEDS: BACTROBAN 2% OINTMENT 1 APPLIC NASAL ×2 (07:49→20:04)
[2024-08-07] MEDS: LIDOCAINE 4% PATCH TOPICAL (07:51)
[2024-08-07] MEDS: MAGNESIUM OXIDE 500 MG PO ×2 (08:05→20:05)
[2024-08-07] MEDS: PACERONE 200 MG PO ×3 (08:05→22:34)
[2024-08-07] MEDS: DESENEX/MITRAZOL/ZEASORB 1 APPLIC TOPICAL ×2 (08:05→20:04)
[2024-08-07] MEDS: CRESTOR 20 MG PO (08:05)
[2024-08-07] MEDS: LOW STRENGTH ASPIRIN 81 MG PO (08:05)
[2024-08-07] MEDS: SENOKOT-S 1 TABLET PO (08:05)
[2024-08-07] MEDS: LEXAPRO 20 MG PO (08:05)
[2024-08-07] MEDS: PLAVIX 75 MG PO (08:05)
[2024-08-07] MEDS: PROTONIX 40 MG PO (08:05)
[2024-08-07] MEDS: TOPROL XL 25 MG PO ×2 (08:06→20:05)
[2024-08-07] MEDS: NEURONTIN 100 MG PO ×3 (08:06→22:35)
[2024-08-07] MEDS: NSS IV (08:06)
--- NOTE | 2024-08-07 08:46 | PN.DE.MGMTRT ---
Insulin Management
- -
08/07/2024: Diabetes Management follow up
Patient admitted 08/04 for scheduled CABG. PMH: multivessel CAD, HTN, HLD, T2DM.
Prior to admission was taking Synjardy 1 tablet twice a day. A1C 7.7%, Cr 0.7, eGFR>60
Patient was managed on continuos insulin infusion x48 and was transitioned off the drip on 08/06 to SQ insulin.
Pt awake, alert, oriented, sitting up in chair eating, offers no complaints, able to discuss diabetes plan plan of acre
He is now POD #3, doing well. He was started back on his outpatient regimen of Synjardy 1 tab (12.5/1000mg).
HS glucose was 231, FBG 191 V this AM. 08/06 Premeal glucose remained elevated 165 to 257 requiring 1-5 units of corrective insulin with meals
Will start Glimepiride 4mg daily, 1st dose NOW.
Pt states he has a working glucose monitor at home with enough supplies.
Will cont to follow. Discussed with Nurse
Will follow up on Wednesday.
Diabetes History
- -
Type of Diabetes: 2
Pre-Admission Diabetes Regimen
08/07/24
04:03
Creatinine 1.0
Lab Results
Hemoglobin A1c 7.7 % (4.0-5.6) H 08/01/24 08:40
Insulin Pump Settings
IP Diabetes Regimen
08/06/24 08/06/24 08/06/24
10:26 13:39 17:37
Glucose
POC Glucose 165 H 234 H 257 H
08/06/24 08/07/24
22:21 04:03
Glucose 191 H
POC Glucose 231 H
Meal type: Dinner
Amount consumed: 100%
Patient Education
--- NOTE | 2024-08-07 09:00 | PTCARENOTE ---
resumed care of patient. oob in chair at time of assessment. NSR. HR 80s. amio gtt finishing up. RA 98%. Doing IS. VSS. all morning meds given. no complaints of pain. pulses palpable. trace gen edema. V wire to back up temp pacing box. no pacing
noted. using urinal. appetite fair. walking with PT OT and will continue to monitor.
--- NOTE | 2024-08-07 09:24 | W.PN.CD ---
Today's Communication / Plan
-
Continue routine post operative management.
Restart empagliflozin/metformin when possible.
Patient would benefit from GLP1 analog at the time of discharge.
There may be a role for outpatient rhythm monitor to assess AF burden.
Impression / Plan
-
Assessment/Plan: 69-year-old male with past medical history of TIA, hyperlipidemia, type 2 diabetes, chronic diastolic heart failure and CAD admitted for elective CABG, complicated by postoperative atrial fibrillation.
#CAD
-Chronic, progressive.
-S/P CABG (JOS to LAD, GSV to D1, GSV to OM, GSV to RPDA) with Dr. Gonzalez, 08/04/2024.
-Continue aspirin, amiodarone, clopidogrel, magnesium, metoprolol and rosuvastatin.
-Incentive spirometry, ambulation.
#Post operative AF
-Acute, resolved. Total of 6 hours.
-Spontaneously resolved, currently in NSR.
-Rate/rhythm control with increased dose of Amio and metoprolol.
-CHADS2-Vasc = 4 (HTN, Age x 1, DM, Vascular Disease).
-S/P LAAE (#40 AtriClip). Hold anticoagulation at this time.
-There may be a role for outpatient monitor to assess atrial fibrillation burden.
#HTN
-Chronic, stable.
-Continue metoprolol.
#Dyslipidemia
-Chronic, stable.
-Continue rosuvastatin 20 mg daily.
-Goal LDL < 55.
#DM2
-Chronic, uncontrolled.
-HbA1c = 7.7%.
-Resume empagliflozin/metformin when possible.
-The patient would benefit from GLP1 analog at the time of discharge.
Subjective/Interval History:
Out of bed a lot this morning.
Feels well but tired.
DATA:
Cardiac Catheterization, 07/14/2024:
CORONARY ANGIOGRAPHY
Dominance: Right
LM: Large vessel with mild distal tapering
LAD: Large vessel giving rise to a single large branching diagonal. There is a long segment calcified disease in the proximal vessel as great as 80%. There is diffuse moderate disease in the diagonal and a focal severe ostial stenosis.
LCx: Large vessel giving rise to a small OM1, small OM2, small LPL1, moderate caliber LPL2, small LPL3. There is an eccentric 50% ostial stenosis and tandem 90% proximal stenosis. The small OM1 is subtotally occluded with ROBERT II flow.
RCA: Large vessel with a total occlusion in the midportion and bridging collaterals supplying antegrade flow to the RPDA There is evidence of competitive flow in the large RPDA. The distal RPDA fills via left to right collaterals from the LAD.
PFTs, 08/01/2024:
FVC was 4.14L or 95% predicted.
FEV1 was 3.24L or 98% predicted.
Ratio 78
Patient Effort: Good
Impression:
Normal spirometry.
Surgery, 08/04/2024:
PROCEDURES:
1. Median sternotomy
2. Takedown of JOS (narrow pedicle)
3. Endoscopic harvest/prep of RLE GSV
4. CABG x 4 (JOS to LAD, GSV to D1, GSV to OM, GSV to RPDA)
5. ELAA (40mm AtriClip)
Intraoperative WERO, 08/04/2024:
CONCLUSIONS
Interatrial septum has lipomatous hypertrophy.
Trace tricuspid regurgitation.
Aortic sclerosis without stenosis.
Mild mitral regurgitation.
Mild sessile atheroma noted in the descending aorta and distal arch.
POST OPERATIVE FINDINGS
The patient underwent a CABG and LA appendage clipping. Postop rhythm remains
sinus. RV and LV function appear normal. Overall LVEF is now approximately
55% with improved basal inferior wall motion. Trace TR. Mild central MR is
unchanged. Mild PI. AV function appears normal. Aortic scan is unchanged.
The LA appendage is now adequately clipped with no color flow distal to the
clip.
Physical Exam
Vital Signs/Labs
Vital Signs
Temp Pulse Resp BP Pulse Ox
36.9 C 83 16 124/65 97
08/07/24 04:00 08/07/24 08:06 08/07/24 04:00 08/07/24 04:06 08/07/24 04:36
08/05/24 08/06/24 08/07/24
11:59 11:59 11:59
Actual Weight 115 kg 116.4 kg 115.4 kg
08/07/24 04:03
08/07/24 04:03
PT 17.1 Sec (11.4-14.6) H 08/04/24 13:31
INR 1.37 08/04/24 13:31
APTT 27.2 Sec (23.4-35.0) 08/04/24 13:31
Magnesium 2.2 mg/dl (1.6-2.3) 08/07/24 04:03
Physical Exam
Constitutional: No acute distress and Comfortable
EENT: Anicteric and Moist mucous membranes
Cardiovascular: Rhythm & rate is regular, Pedal edema is absent, JVD pressure is normal, S1S2 is normal and Murmur/rub/gallop absent
Respiratory: Respiratory effort normal, Lungs clear to auscul., Wheeze Absent, Crackles Absent and Rhonchi Absent
GI: Soft, Distention absent, Flat, Non tender and Normal bowel sounds
Neuro/Psych: AO x 3
Data Reviewed
-
Date of Service: August 07, 2024
Medical Decision Making: Reviewed Test Results, Independent Historian Assessment and Test Interpretation
EKG: Tracing Personally Visualized and interpreted and Report Reviewed by me
Echo: Report Reviewed by me
X-Ray/CT/US/MRI/NUC/PET: Image Personally Visualized and interpreted and Report Reviewed by me
Medical Tests (PFT, Pathology etc): Image Personally Visualized and interpreted and Report Reviewed by me
Labs: Labs Reviewed by me
Old Records: Reviewed
[2024-08-07] MEDS: AMARYL 4 MG PO (11:16)
[2024-08-07 11:26] LABS: Glucose - Point of Care 166 mg/dl (70-99)
--- NOTE | 2024-08-07 11:29 | PTCARENOTE ---
Assumed care of patient. Walking rounds completed with previous RN. Pt assessed while he was sitting in the chair. Pt alert and oriented x4. Rates sternal pain 3/10. Denies nausea. MAN with equal strength. Ambulates with cane and 1 assist. NSR on
tele with rates in the 70s-80s. BP 109/54. Epicardial v-wire to back up, no pacing noted. POX 98% on RA. Lungs diminished in the bases. Bilateral radial pulses palpable. Bilateral DP pulses weakly palpable. Generalized +1 edema noted. Abdomen soft,
round, nontender. +BS. Pt denies constipation. Pt voiding vivi urine in the urinal. Sternal incision covered with Aquacel-CDI. Old CT dressing CDI. Right groin puncture PIPE SETTER. Right SVG harvest approximated, PIPE SETTER. Right IJ cordis and right forearm 18g
PIV intact. See MAR for medication administration. See worklist for complete nursing assessment. Plan of care reviewed and patient in agreement.
[2024-08-07 16:21] LABS: Glucose - Point of Care 177 mg/dl (70-99)
[2024-08-07] MEDS: ULTRAM 25 MG PO (20:01)
[2024-08-07] MEDS: SENOKOT-S PO (20:05)
[2024-08-07 22:35] LABS: Glucose - Point of Care 166 mg/dl (70-99)
--- NOTE | 2024-08-07 23:50 | PTCARENOTE ---
Received patient at change of shift. SR on the monitor, HR in the 70s. V wire in place, pacer box in room. Surgical sites intact. Pt complains of 6/10 sternal pain when taking deep breaths, PRN pain medication administered as per protocol, see MAR.
Call brown within reach.
[2024-08-08 03:53] VITALS: BP 137/77
[2024-08-08 04:14] VITALS: BMI 33.5
[2024-08-08 04:34] LABS: Hematocrit 26.9 % (39.0-52.0); Hemoglobin 9.5 g/dL (13.0-18.0); Mean Corp Hgb Conc. 35.3 g/dL (33.0-37.0); Mean Corpuscular Hgb 31.9 pg (27.0-31.0); Mean Corpuscular Volume 90.3 fL (80.0-94.0); Mean Platelet Volume 10.2 fL (7.4-10.4); Platelet Count 150 10^3/uL (130-400); Red Blood Cell Count 2.98 10^6/uL (4.70-6.10); White Blood Cell Count 5.7 10^3/uL (4.8-10.8)
--- NOTE | 2024-08-08 04:39 | W.PN.CT ---
Today's Communication / Plan
-
Plan:
-No major issues overnight. Hemodynamically and neurologically intact
-NO further a-fib since the 6hrs on POD#1 into POD#2. Tolerating increased Toprol XL to 25 mg BID, on PO Amiodarone
-Cont. current meds (ASA, Plavix, Crestor, Amiodarone, Toprol XL)
-A1C 7.7, Diabetes education/management following. Cardiology recommend GLP1 analog med at time of discharge
-Placed mag oxide on hold, mg 2.4 today
-Postop thrombocytopenia has resolved: 121->113->150
-F/U 2-view cxr
-Encourage use of IS
-Ambulatory dysfunction d/t neuropathy/left foot fx, uses cane/walker- PT-OT f/u- okay with pt going home and recommend home PT
-OOB into chair/Ambulate/
-Home today
Assessment / Plan
-
Assessment:
-S/P Median sternotomy/CABG x 4 (JOS to LAD, GSV to D1, GSV to OM, GSV to RPDA)/Endoscopic harvest/prep of RLE GSV/ELAA (40mm AtriClip), by Dr Gonzalez, 08/04/24, pod#4
-Severe 3v CAD
-LVEF 50-55%
-Chronic diastolic CHF
-HTN
-HLD
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
-Ambulatory dysfunction (neuropathy and L foot fx in 04/04), uses cane/walker
-Class 1 obesity (BMI 32.3)
-Hx TIA
-Former tobacco use
-DJD/Spinal stenosis
-S/p back surgery x 3
-Acute postop blood loss/Anemia (stable without blood transfusion)
-Acute postop thrombocytopenia
-Acute postop atelectasis
-Acute postop hypovolemia with subsequent hypervolemia
-Acute postop a-fib with RVR
-Acute postop hypokalemia
-Acute postop hypermagnesemia
Discussed patient care with: Cardiology, Nursing, Respiratory Therapy, Pharmacy and Care Team
Subjective
Procedure
S/P Median sternotomy/CABG x 4 (JOS to LAD, GSV to D1, GSV to OM, GSV to RPDA)/Endoscopic harvest/prep of RLE GSV/ELAA (40mm AtriClip), by Dr Gonzalez, 08/04/24
-
Date of Service: August 08, 2024
Pt c/o mild incisional pain, otherwise feels well. Ambulating well with rolling walker. Wants to go home
Objective Data
-
Lab Results
08/08/24 04:02
PT 17.1 Sec (11.4-14.6) H 08/04/24 13:31
INR 1.37 08/04/24 13:31
APTT 27.2 Sec (23.4-35.0) 08/04/24 13:31
Vital Signs
Vital Signs
Temp Pulse Resp BP Pulse Ox
98.6 F 74 18 136/63 98
08/08/24 04:14 08/07/24 22:34 08/08/24 04:14 08/07/24 22:34 08/08/24 04:14
CT Intake/Output/Weight
08/07/24 08/07/24 08/08/24
06:59 18:59 06:59
Intake Total 740 / 740
Output Total 5 / 3215 650 / 650
Balance -2074 / -2202.2 90 / 90
SaO2: 98 (RA)
Physical Exam
-
General: Awake, Oriented and AOx3
Cardiovascular: Regular rate & rhythm, No Murmurs and No Gallop
Respiratory: Decreased Breath Sounds (at bases, otherwise clear )
Sternum: Stable
Incision: Clean, Dry, Intact and Dressing Intact
Extremities: Other (+trace edema )
Data Reviewed
-
Lab Results: Results Reviewed
Medications: Active Meds Reviewed
Chest X-Ray: Report Reviewed and Image Reviewed
ECG: Report Reviewed and Image Reviewed
[2024-08-08 05:00] LABS: Blood Urea Nitrogen 20 mg/dl (9-20); Calcium 8.8 mg/dl (8.4-10.2); Carbon Dioxide 23 mmol/L (22-30); Chloride 109 mmol/L (98-107); Estimated Creatinine Clearance 101 ml/min; Glucose 120 mg/dl (70-99); Magnesium 2.4 mg/dl (1.6-2.3); Potassium 4.1 mmol/L (3.5-5.1); Sodium 140 mmol/L (135-145); eGFR > 60.00
[2024-08-08] MEDS: TYLENOL 1000 MG PO ×2 (05:54→13:07)
--- NOTE | 2024-08-08 07:29 | PN.DE.MGMTRT ---
Insulin Management
- -
08/08/2024: Diabetes Management follow up
Patient admitted 08/04 for scheduled CABG. PMH: multivessel CAD, HTN, HLD, T2DM.
Prior to admission was taking Synjardy 1 tablet twice a day. A1C 7.7%, Cr 0.7, eGFR>60
Patient was managed on continuos insulin infusion x48 and was transitioned off the drip on 08/06 to SQ insulin.
Pt awake, alert, oriented, sitting up in bed, offers no complaints, able to discuss diabetes plan plan of acre
He is now POD #4, doing well. Glucose stable and in range, 166 to 177, FBG 120 V, 132 POC.
Will make no changes to current regimen: Cont Glimepiride 4mg daily and Synjardy 1 tablet twice a day.
Pt states he has a working glucose monitor at home with enough supplies.
Will cont to follow. Discussed with Nurse
Diabetes History
- -
Type of Diabetes: 2
Pre-Admission Diabetes Regimen
08/08/24
04:02
Creatinine 0.9
Lab Results
Hemoglobin A1c 7.7 % (4.0-5.6) H 08/01/24 08:40
Insulin Pump Settings
IP Diabetes Regimen
08/07/24 08/07/24 08/07/24
11:21 16:19 22:34
Glucose
POC Glucose 166 H 177 H 166 H
08/08/24
04:02
Glucose 120 H
POC Glucose
Meal type: Breakfast
Amount consumed: 75%
Patient Education
[2024-08-08 07:51] VITALS: BP 133/58
[2024-08-08] MEDS: LOW STRENGTH ASPIRIN 81 MG PO (07:53)
[2024-08-08] MEDS: PACERONE 200 MG PO (07:53)
[2024-08-08] MEDS: PROTONIX 40 MG PO (07:53)
[2024-08-08] MEDS: TOPROL XL 25 MG PO (07:53)
[2024-08-08] MEDS: AMARYL 4 MG PO (07:53)
[2024-08-08] MEDS: LEXAPRO 20 MG PO (07:53)
[2024-08-08] MEDS: SENOKOT-S 1 TABLET PO (07:53)
[2024-08-08] MEDS: CRESTOR 20 MG PO (07:53)
[2024-08-08] MEDS: NEURONTIN 100 MG PO (07:53)
[2024-08-08] MEDS: BACTROBAN 2% OINTMENT 1 APPLIC NASAL (07:54)
[2024-08-08] MEDS: DESENEX/MITRAZOL/ZEASORB 1 APPLIC TOPICAL (07:54)
[2024-08-08] MEDS: PLAVIX 75 MG PO (07:54)
[2024-08-08] MEDS: NON-FORMULARY ITEM 1 TABLET PO (07:55)
[2024-08-08 08:09] LABS: Glucose - Point of Care 132 mg/dl (70-99)
[2024-08-08] MEDS: NOVOLOG FLEXPEN-MODERATE RESISTANCE SC ×2 (08:12→12:34)
--- NOTE | 2024-08-08 09:04 | CM ---
Reviewed chart. Mr. Coelho was transferred to IVU. Met with Mr. Coelho to review discharge plans. He states he is feeling well and maybe able to go home soon. He states prior to admission he resides with his spouse in a two story home with one step
to enter. He states he resides in a [facility] which is a [address] [facility] long-term [facility]. He states he has a first floor set-up. He states prior to admission he ambulates with a single point cane. He states he a single point cane and two
walkers at home. He states he has a prescription plan. We reviewed a home visit by the Transitional Care Nurse. He is agreeable to a home visit. He states his one son from [place] is coming to stay with him for a week to assist in his care if
needed. He states his other son from [place] will be coming the following week to assist in his care if needed. His spouse will be home also to assist in his care if needed. Medical work-up in progress. The discharge plan is to return home with
his spouse and his sone staying with him, and a home visit by the Transitional Care Nurse when medically stable.
--- NOTE | 2024-08-08 09:35 | W.PN.CD ---
Today's Communication / Plan
-
home today
F/u with Dr Reyna
continue current medications
Impression / Plan
-
Assessment/Plan: 69-year-old male with past medical history of TIA, hyperlipidemia, type 2 diabetes, chronic diastolic heart failure and CAD admitted for elective CABG, complicated by postoperative atrial fibrillation.
#CAD
-Chronic, progressive.
-S/P CABG (JOS to LAD, GSV to D1, GSV to OM, GSV to RPDA) with Dr. Gonzalez, 08/04/2024.
-Continue aspirin, amiodarone, clopidogrel, magnesium, metoprolol and rosuvastatin.
-Incentive spirometry, ambulation.
#Post operative AF
-Acute, resolved. Total of 6 hours.
-Spontaneously resolved, currently in NSR.
-Rate/rhythm control with increased dose of Amio and metoprolol.
-CHADS2-Vasc = 4 (HTN, Age x 1, DM, Vascular Disease).
-S/P LAAE (#40 AtriClip). Hold anticoagulation at this time.
-There may be a role for outpatient monitor to assess atrial fibrillation rafael--I did make Dr Reyna aware so he can consider this option. .
#HTN
-Chronic, stable.
-Continue metoprolol.
#Dyslipidemia
-Chronic, stable.
-Continue rosuvastatin 20 mg daily.
-Goal LDL < 55.
#DM2
-Chronic, uncontrolled.
-HbA1c = 7.7%.
-Resume empagliflozin/metformin when possible.
-The patient would benefit from GLP1 analog at the time of discharge.
Subjective/Interval History:
happy to have had a BM, feeling like a new man
DATA:
Cardiac Catheterization, 07/14/2024:
CORONARY ANGIOGRAPHY
Dominance: Right
LM: Large vessel with mild distal tapering
LAD: Large vessel giving rise to a single large branching diagonal. There is a long segment calcified disease in the proximal vessel as great as 80%. There is diffuse moderate disease in the diagonal and a focal severe ostial stenosis.
LCx: Large vessel giving rise to a small OM1, small OM2, small LPL1, moderate caliber LPL2, small LPL3. There is an eccentric 50% ostial stenosis and tandem 90% proximal stenosis. The small OM1 is subtotally occluded with ROBERT II flow.
RCA: Large vessel with a total occlusion in the midportion and bridging collaterals supplying antegrade flow to the RPDA There is evidence of competitive flow in the large RPDA. The distal RPDA fills via left to right collaterals from the LAD.
PFTs, 08/01/2024:
FVC was 4.14L or 95% predicted.
FEV1 was 3.24L or 98% predicted.
Ratio 78
Patient Effort: Good
Impression:
Normal spirometry.
Surgery, 08/04/2024:
PROCEDURES:
1. Median sternotomy
2. Takedown of JOS (narrow pedicle)
3. Endoscopic harvest/prep of RLE GSV
4. CABG x 4 (JOS to LAD, GSV to D1, GSV to OM, GSV to RPDA)
5. ELAA (40mm AtriClip)
Intraoperative WERO, 08/04/2024:
CONCLUSIONS
Interatrial septum has lipomatous hypertrophy.
Trace tricuspid regurgitation.
Aortic sclerosis without stenosis.
Mild mitral regurgitation.
Mild sessile atheroma noted in the descending aorta and distal arch.
POST OPERATIVE FINDINGS
The patient underwent a CABG and LA appendage clipping. Postop rhythm remains
sinus. RV and LV function appear normal. Overall LVEF is now approximately
55% with improved basal inferior wall motion. Trace TR. Mild central MR is
unchanged. Mild PI. AV function appears normal. Aortic scan is unchanged.
The LA appendage is now adequately clipped with no color flow distal to the
clip.
Physical Exam
Vital Signs/Labs
Vital Signs
Temp Pulse Resp BP Pulse Ox
98.6 F 70 18 133/58 98
08/08/24 04:14 08/08/24 08:00 08/08/24 04:14 08/08/24 07:53 08/08/24 04:42
08/07/24 08/08/24 08/09/24
06:59 06:59 06:59
Actual Weight 254 lb 6.615 oz 253 lb 8.505 oz
08/08/24 04:02
08/08/24 04:02
PT 17.1 Sec (11.4-14.6) H 08/04/24 13:31
INR 1.37 08/04/24 13:31
APTT 27.2 Sec (23.4-35.0) 08/04/24 13:31
Magnesium 2.4 mg/dl (1.6-2.3) H 08/08/24 04:02
Physical Exam
Constitutional: No acute distress
Cardiovascular: Rhythm & rate is regular, Pedal edema is absent, JVD pressure is normal, Systolic murmur absent and Diastolic murmur absent
Respiratory: Respiratory effort normal, Lungs clear to auscul., Wheeze Absent, Crackles Absent and Rhonchi Absent
Neuro/Psych: AO x 3
Data Reviewed
-
Date of Service: August 08, 2024
Medical Decision Making: Review of Case with other Provider (Dr Reyna, made aware of brief post op af )
EKG: Tracing Personally Visualized and interpreted (sinus )
--- NOTE | 2024-08-08 10:09 | W.DCSUMMARY ---
Discharge Summary
Discharge Data
Date of Admission: 08/04/24
Date of Discharge: 08/08/24
Total time spent discharging patient (in min): 45
-
Pending Results: No
Hospital Course
Primary care physician:
Dr. Melgoza
Outpatient parquetry layer:
Dr. Reyna
Inpatient consultants:
[facility], guide rail cleaner, DM management switchboard installer
Procedures:
1. CABG x 4 (JOS to LAD, GSV to D1, GSV to OM, GSV to RPDA) and LAAC
Primary Diagnosis:
1. Multivessel coronary disease
Secondary Diagnoses:
1. HTN
2. HLD
3. 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
4. Ambulatory dysfunction (neuropathy and L foot fx in 04/04), uses cane/walker
5 Class 1 obesity (BMI 32.3)
6. Hx TIA
7. DJD/Spinal stenosis
8. Acute postop blood loss/Anemia (stable without blood transfusion)
9. Acute postop atelectasis
10. Acute postop hypovolemia with subsequent hypervolemia
11. Acute postop a-fib with RVR
HPI: 69-year-old gentleman with known history of hypertension, hyperlipidemia as well as prior history of stroke who follows up with cardiology services outpatient closely. Patient recently had an outpatient stress test which was suggestive of
ischemia that was followed by a cardiac catheterization showing multivessel coronary artery disease. Patient was subsequently referred to cardiothoracic surgery for further evaluation.
Hospital course: Postoperatively patient returned to the CVICU on Levophed, Precedex, and insulin infusions. Levophed and Precedex was weaned off and patient was extubated by 1544. On 08/05 postoperative day 1 patient was diuresed with 40 mg of IV
Lasix and insulin infusion was continued. PT and OT was consulted. On 08/06 postoperative day 2 patient had a 6-hour episode of atrial fibrillation and he converted after an amnio bolus and infusion. Patient was resumed on his home oral diabetic
regimen and insulin drip was discontinued. Patient was again diuresed with 40 mg of IV Lasix. Chest tubes were removed. On 08/07 postoperative day 3 patient's blood sugars continue to be high despite oral regimen and glimepiride 4 mg 3 times daily
was added. Right IJ Cordis was discontinued and patient was transferred to IVU for the remainder of his care. On 08/08 postoperative day 4 patient's two-view chest x-ray remained stable there was no further episodes of atrial fibrillation therefore
he was deemed stable discharged.
Home medication changes:
see below
Discharge Plan
-
Patient Disposition: Home (Routine Discharge)
Discharge Diagnosis/Procedures: CABG x 4, left atrial appendage clip
Condition: Good
Diet: 2 Gram Sodium and Diabetic, Carb Controlled
Activity: No strenuous activity
Driving Restrictions: Not until seen by your Dr
Bathing Restrictions: OK to Shower
Blood Work: BMP in one week
Other Services: Cardiac Rehab
Specialty Instructions: Weigh Daily- Call MD for wt gain/loss 3 lbs overnight/5 lbs in 1 week
Activity Restrictions/Additional Instructions:
ACTIVITY:
-No strenuous activity: no heavy lifting, pushing, pulling anything over 15 pounds for one month
-continue to use stairs as tolerated
DRIVING RESTRICTIONS:
-No driving for one month or until approved by your surgeon
WOUND CARE:
-Shower daily. Use soap & water.
-No lotions, creams or powders on incision area.
DIET:
-continue a low fat/low cholesterol diet.
-IF you are diabetic, continue carb controlled diet.
CARDIAC REHAB:
-Please make appointment to start in 5-6 weeks with your local hospital program. (See Cardiac Rehabilitation Discharge Booklet).
SPECIALTY INSTRUCTIONS:
-Weigh yourself daily. Call your physician for any weight gain/loss of 3 lbs overnight or 5 lbs in one week.
-REPORT any clicking noise or uneven appearance of your sternum to your surgeon immediately.
-If you smoke, you are instructed to quit. The [place] smoking hotline phone number is [phone]
Referrals:
Yina Mcmahon RESEARCH PHARMACIST [Other] - 09/12/24 2:30 pm
CT Transitional Care Nurse [Outside] (The Cardiothoracic Transitional Care Nurse will call you to set up a visit in 1-2 days.)
[facility] [Outside] - 09/13/24 1:00 pm
(Cardiac Rehab Orientation and First exercise appointment is on Wednesday09/13/24 at 1pm.
The Cardiac Rehab gym is located on the first floor of the [facility].)
Steve Peters MD [Active] - in one to two months
Robbi Melgoza MD [Family Provider] -
Carrillo Gonzalez MD [Active] - 09/05/24 1:30 pm
Additional Discharge Medication Instructions: Please take amiodarone 200mg twice a day for 14 days and then 200mg daily
Only take plavix and protonix for 30 days total
Please note that your dose of metoprolol succinate has increased
Prescriptions:
New
acetaminophen 325 mg Tablet
650 mg PO Q4HPRN PRN (Reason: mild pain,headache,temp >101F ) Qty: 0 0RF
glimepiride 4 mg Tablet
4 mg PO DAILY Qty: 30 2RF
cyclobenzaprine 10 mg Tablet
5 mg PO Q8HPRN PRN (Reason: muscle spasm) Qty: 60 0RF
amiodarone 200 mg Tablet
200 mg PO BID Qty: 60 1RF
Rx Instructions:
please take 200mg BID for 14 days and then 200mg daily
clopidogrel 75 mg Tablet
75 mg PO DAILY Qty: 30 0RF
pantoprazole 40 mg Tablet,Delayed Release (Dr/Ec)
40 mg PO DAILY Qty: 30 0RF
gabapentin 100 mg Capsule
100 mg PO TID Qty: 60 1RF
furosemide [Lasix] 20 mg tablet
20 mg PO DAILY Qty: 7 0RF
Rx Instructions:
Take daily for 7 days, then stop
potassium chloride 10 mEq tablet extended release
10 meq PO DAILY Qty: 7 0RF
Continued
escitalopram oxalate 20 mg Tablet
20 mg PO DAILY
Synjardy 12.5-1,000 mg Tablet
1 tab PO BID
aspirin 81 mg tablet,delayed release (DR/EC)
81 mg PO DAILY
rosuvastatin [Crestor] 20 mg tablet
20 mg PO DAILY
Changed
metoprolol succinate 25 mg tablet extended release 24 hr
25 mg PO BID Qty: 0 0RF
Discontinued
benazepril 40 mg Tablet
40 mg PO DAILY
nitroglycerin 0.4 mg tablet, sublingual
0.4 mg sublingual [id number] PRN (Reason: chest pain) Qty: 25 2RF
Rx Instructions:
pt has never taken this med
Amino Acid Capsule
2 cap PO DAILY
creatine monohydrate tablet
2 tab PO DAILY
Rx Instructions:
1-2 tabs daily
krill oil
2 tab PO DAILY
vitamin D3-vitamin K2
1 tab PO DAILY
Rx Instructions:
also with coconut oil
Vit d3 10,000IU and 200 mg K2
Discharge Orders:
Discharge Patient (As Directed); Ordered 08/08/24
Ordered By: Arely Fernández
Care Plan Goals
Care Plan Goals:
Problem: Readiness for enhanced knowledge related to diagnosis and treatment plan
Goal: Understand your diagnosis and treatment plan needs, including medications if applicable.
Instructions: Know your diagnosis, underlying causes and treatment plan options, including medications if applicable. Consult with your health care team to learn about your diagnosis and treatment plan, including medications if applicable.
Discharge Date and Time
Print Language: SWAZI
[2024-08-08 11:09] VITALS: PULSE 60
[2024-08-08 11:30] VITALS: BP 132/65
[2024-08-08 11:40] LABS: Glucose - Point of Care 112 mg/dl (70-99)
[2024-08-08 14:02] VITALS: BP 134/55
[2024-08-08] MEDS: NSS IV (14:57)
== END 2024-08-08 14:44 | disposition home or self-care (01) | DRG 236 ==
LOC: IVU 05:01
PROVIDERS: Clinical Nurse Specialist Acute Care; ADMITTING PHYSICIAN Thoracic Surgery (Cardiothoracic Vascular Surgery); CONSULT PHYSICIAN Internal Medicine; FAMILY PHYSICIAN Family Medicine
PROC: 06BP0ZZ Excision of Right Saphenous Vein, Open Approach (ICD-10-PCS; 2024-08-04)
PROC: 02L70CK Occlusion of Left Atrial Appendage with Extraluminal Device, Open Approach (ICD-10-PCS; 2024-08-04)
PROC: B24BZZ4 Ultrasonography of Heart with Aorta, Transesophageal (ICD-10-PCS; 2024-08-04)
PROC: 5A1221Z Performance of Cardiac Output, Continuous (ICD-10-PCS; 2024-08-04)
PROC: 0212093 Bypass Coronary Artery, Three Arteries from Coronary Artery with Autologous Venous Tissue, Open Approach (ICD-10-PCS; 2024-08-04)
PROC: 02100ZC Bypass Coronary Artery, One Artery from Thoracic Artery, Open Approach (ICD-10-PCS; 2024-08-04)
DX: I25.10 Atherosclerotic heart disease of native coronary artery without angina pectoris (principal); I50.32 Chronic diastolic (congestive) heart failure; D62 Acute posthemorrhagic anemia; J98.11 Atelectasis; I97.190 Other postprocedural cardiac functional disturbances following cardiac surgery; I11.0 Hypertensive heart disease with heart failure; E78.5 Hyperlipidemia, unspecified; R91.1 Solitary pulmonary nodule; I70.0 Atherosclerosis of aorta; R94.39 Abnormal result of other cardiovascular function study; M48.00 Spinal stenosis, site unspecified; E66.811 Obesity, class 1; G47.33 Obstructive sleep apnea (adult) (pediatric); E11.40 Type 2 diabetes mellitus with diabetic neuropathy, unspecified; D69.6 Thrombocytopenia, unspecified; E87.6 Hypokalemia; E83.41 Hypermagnesemia; I48.91 Unspecified atrial fibrillation; Y83.2 Surgical operation with anastomosis, bypass or graft as the cause of abnormal reaction of the patient, or of later complication, without mention of misadventure at the time of the procedure; E86.1 Hypovolemia; E87.70 Fluid overload, unspecified; Z86.73 Personal history of transient ischemic attack (TIA), and cerebral infarction without residual deficits; Z87.891 Personal history of nicotine dependence; Z88.5 Allergy status to narcotic agent; Z88.0 Allergy status to penicillin; Z79.84 Long term (current) use of oral hypoglycemic drugs; Z68.32 Body mass index [BMI] 32.0-32.9, adult
CPT/HCPCS: 36415; 71045; 71046; 80048; 80053; 81003; 81015; 82248; 82330; 82565; 82805; 82947; 82962; 83036; 83735; 84132; 84302; 84520; 85014; 85018; 85025; 85027; 85049; 85610; 85730; 86850; 86900; 86901; 86920; 87070; 93005; 93312; 93320; 93325; 93880; 94002; 94010; 97116; 97163; 97167; 97530; 97535; C1713; P9045

== ENCOUNTER 2024-10-05 10:35 | Outpatient (RCR) | payer BC, MEDICARE, SELFPAY ==
[2024-09-13 13:28] LABS: Glucose - Point of Care 122 mg/dl (70-99)
[2024-09-13 14:46] LABS: Glucose - Point of Care 118 mg/dl (70-99)
[2024-09-13 15:34] LABS: Glucose - Point of Care 140 mg/dl (70-99)
[2024-09-19 10:38] LABS: HDL Cholesterol 50 mg/dl; LDL Cholesterol, Calculated 66 mg/dl; Total Cholesterol 152 mg/dl (50-199); Triglyceride 184 mg/dl (10-149); Very Low Density Lipoprotein 36 mg/dl (0-30)
[2024-09-19 10:39] LABS: Glucose - Point of Care 137 mg/dl (70-99)
[2024-09-19 11:27] LABS: Glucose - Point of Care 141 mg/dl (70-99)
[2024-09-21 10:21] LABS: Glucose - Point of Care 104 mg/dl (70-99)
[2024-09-21 11:22] LABS: Glucose - Point of Care 109 mg/dl (70-99)
[2024-09-26 10:37] LABS: Glucose - Point of Care 122 mg/dl (70-99)
[2024-09-26 11:19] LABS: Glucose - Point of Care 128 mg/dl (70-99)
[2024-09-27 13:07] LABS: Glucose - Point of Care 143 mg/dl (70-99)
[2024-09-27 13:56] LABS: Glucose - Point of Care 129 mg/dl (70-99)
[2024-10-03 10:24] LABS: Glucose - Point of Care 129 mg/dl (70-99)
[2024-10-03 11:14] LABS: Glucose - Point of Care 127 mg/dl (70-99)
== END 2024-10-05 23:59 | disposition home or self-care (01) ==
LOC: CRHB 10:35
PROVIDERS: ATTENDING PHYSICIAN Internal Medicine Cardiovascular Disease
DX: I25.10 Atherosclerotic heart disease of native coronary artery without angina pectoris (principal); Z95.1 Presence of aortocoronary bypass graft
CPT/HCPCS: 80061; 82962; G0422; G0423

== ENCOUNTER 2024-11-09 10:45 | Outpatient (RCR) | payer MEDICARE, BC, SELFPAY | END 2024-11-09 23:59 | disposition home or self-care (01) | LOC: CRHB 10:45 | PROVIDERS: ATTENDING PHYSICIAN Internal Medicine Cardiovascular Disease | DX: I25.10 Atherosclerotic heart disease of native coronary artery without angina pectoris (principal); Z95.1 Presence of aortocoronary bypass graft | CPT/HCPCS: G0422; G0423 ==

== ENCOUNTER 2024-12-07 09:30 | Outpatient (RCR) | payer MEDICARE, BC, SELFPAY | END 2024-12-07 23:59 | disposition home or self-care (01) | LOC: CRHB 09:30 | PROVIDERS: ATTENDING PHYSICIAN Internal Medicine Cardiovascular Disease | DX: I25.10 Atherosclerotic heart disease of native coronary artery without angina pectoris (principal); Z95.1 Presence of aortocoronary bypass graft (principal) | CPT/HCPCS: G0422; G0423 ==

== ENCOUNTER 2024-12-19 10:51 | Outpatient (RCR) | payer MEDICARE, BC, SELFPAY | END 2024-12-19 23:59 | disposition home or self-care (01) | LOC: CRHB 10:51 | PROVIDERS: ATTENDING PHYSICIAN Internal Medicine Cardiovascular Disease; FAMILY PHYSICIAN Family Medicine | DX: Z95.1 Presence of aortocoronary bypass graft (principal) | CPT/HCPCS: G0422; G0423 ==